=== PATIENT | female | born 1945 | race Caucasian/White ===

== ENCOUNTER 2024-10-25 00:52 | Inpatient (IN) | payer MEDICARE, OTHER ==
--- NOTE | 2024-10-25 01:16 | ED ---
General Adult HPI - General Chief complaint: Arrhythmia/Palpitations Stated complaint: A-fib Time Seen by Provider: 10/25/24 00:56 Source: patient, EMS Mode of arrival: EMS - History of Present Illness Initial comments: This patient is an 78-year-old woman brought by ambulance to have evaluation for weakness. The patient states that she thinks a family member called EMS she do es not recall why. The patient is not having pain, dyspnea, nausea vomiting. She denies cough. The patient does state that she does feel weak and tired. She denies focal weakness. -: unknown Severity scale (1-10): 0 Consistency: constant Improves with: none Worsens with: none Associated Symptoms: weakness Treatments Prior to Arrival: none - Related Data Home Medications Medication Instructions Recorded Confirmed Apixaban [Eliquis] 2.5 mg PO BID 10/25/24 10/25/24 Cetirizine HCl [Zyrtec] 10 mg PO DAILY 10/25/24 10/25/24 Triamcinolone 0.1% Cream [Kenalog 1 applic TOPICAL BID 10/25/24 10/25/24 0.1% Cream] hydrOXYzine HCL [Atarax] 10 mg PO HS 10/25/24 10/25/24 Previous Rx's Medication Instructions Recorded Metoprolol Tartrate [Lopressor] 12.5 mg PO BID #11 tab 10/01/16 Allergies Allergy/AdvReac Type Severity Reaction Status Date / Time Iodinated Contrast Media Allergy Rash/Hives Verified 10/25/24 09:09 [Iodinated Contrast Media - IV Dye] Latex, Natural Rubber Allergy Rash/Hives Verified 10/25/24 09:09 Penicillins Allergy Swelling Verified 10/25/24 09:09 shellfish derived Allergy Rash/Hives Verified 10/25/24 09:09 Review of Systems ROS Statement: Those systems with pertinent positive or pertinent negative responses have been documented in the HPI. ROS Other: All systems not noted in ROS Statement are negative. Constitutional: Reports: weakness. Denies: fever, chills Eyes: Denies: vision change ENT: Denies: congestion Respiratory: Denies: cough, dyspnea, wheezes Cardiovascular: Denies: chest pain, palpitations, syncope Gastrointestinal: Reports: abdominal pain. Denies: nausea, vomiting, diarrhea Genitourinary: Denies: dysuria Musculoskeletal: Denies: back pain Skin: Denies: rash Neurological: Denies: headache, weakness, confusion Past Medical History Past Medical History: Osteoarthritis (OA) Additional Past Medical History / Comment(s): see Dr De León [facility] & [facility], can't philippe costaen right arm due to accident as a child, whooping cough as a child, spinal stenosis History of Any Multi-Drug Resistant Organisms: None Reported Past Surgical History: Cholecystectomy, Hysterectomy, Pacemaker, Tubal Ligation Past Anesthesia/Blood Transfusion Reactions: No Reported Reaction Type of Cardiac Device: Permanent Pacemaker Device Placement Date:: 1995 & 2045 Past Psychological History: No Psychological Hx Reported Smoking Status: Current some day smoker Past Alcohol Use History: None Reported Past Drug Use History: None Reported - Past Family History Brother(s) Family Medical History: Cancer Father Family Medical History: Coronary Artery Disease (CAD) General Exam General appearance: alert, in no apparent distress Head exam: Present: atraumatic, normocephalic Eye exam: Present: normal appearance. Absent: scleral icterus, conjunctival injection ENT exam: Present: normal oropharynx Neck exam: Present: normal inspection Respiratory exam: Present: normal lung sounds bilaterally. Absent: respiratory distress, wheezes, rales, rhonchi, stridor, accessory muscle use Cardiovascular Exam: Present: regular rate, irregular rhythm, normal heart sounds. Absent: systolic murmur, diastolic murmur, rubs, gallop GI/Abdominal exam: Present: soft. Absent: distended, tenderness, guarding, rebound, rigid, mass Extremities exam: Present: normal inspection, normal capillary refill. Absent: pedal edema, calf tenderness Back exam: Present: normal inspection. Absent: CVA tenderness (R), CVA tenderness (L) Neurological exam: Present: alert Skin exam: Present: warm, dry, normal color, other (Patient has small ulcer left pretibial). Absent: rash Course Vital Signs 10/25/24 10/25/24 10/25/24 00:58 02:52 05:49 Temperature 97.8 F Pulse Rate 75 77 75 Respiratory 18 18 16 Rate Blood Pressure 148/94 139/76 138/76 O2 Sat by Pulse 96 99 98 Oximetry 10/25/24 10/25/24 10/25/24 06:36 07:57 09:11 Temperature 99.2 F Pulse Rate 74 80 Respiratory 16 14 Rate Blood Pressure 128/76 110/62 O2 Sat by Pulse 98 93 L Oximetry EKG Findings - EKG Results: EKG: interpreted by ERMD, normal axis, normal ST/T - Dysrhythmias: Supraventricular dysrhythmia: atrial fibrillation (Rate 86 bpm) - CA, Pacemaker, Normal: Myocardial infarction: septal CA (old age or indeterminate) Medical Decision Making - Medical Decision Making Patient is 78-year-old woman here with generalized weakness. Workup reveals leukocytosis but no definite infection. The patient did attempt to give urine specimen at bedside commode twice but there was fecal contamination. Case discussed with Dr. Rousseau who will admit for altered mental status with possibility of urinary tract infection. No SIRS criteria x tosis currently The patient had chest x-ray that I interpreted as negative for acute infiltrate, pneumothorax, congestive heart failure The patient had CT of the brain that I interpreted as negative for acute bony injury, negative for acute intracranial hemorrhage or mass effect Was pt. sent in by a medical professional or institution (, PA, GARBAGE COLLECTOR DRIVER, urgent care, hospital, or intermediate...) When possible be specific @ -[No] Did you speak to anyone other than the patient for history (EMS, parent, family, police, friend...)? What history was obtained from this source @ -[EMS gave history Did you review nursing and triage notes (agree or disagree)? Why? @ -[I reviewed and agree with nursing and triage notes] Were old charts reviewed (outside hosp., previous admission, EMS record, old EKG, old radiological studies, urgent care reports/EKG's, intermediate records)? Report findings @ -[No old charts were reviewed] Differential Diagnosis (chest pain, altered mental status, abdominal pain women, abdominal pain men, vaginal bleeding, weakness, fever, dyspnea, syncope, headache, dizziness, GI bleed, back pain, seizure, CVA, palpatations, mental health, musculoskeletal)? @ -[Differential Altered Mental Status: Hypoglycemia, DKA, hypercapnia, ETOH, overdose, CO poisoning, trauma, myxedema coma, HTN encephalopathy, infection, encephalitis, psychosis, intercranial hemorrhage, hepatic encephalopathy, meningitis, CVA, this is not meant to be an all-inclusive list EKG interpreted by me (3pts min.). @ -[I interpreted as above] X-rays interpreted by me (1pt min.). @ -[I interpreted as above CT interpreted by me (1pt min.). @ -[I interpreted as above U/S interpreted by me (1pt. min.). @ -[None done] What testing was considered but not performed or refused? (CT, X-rays, U/S, labs)? Why? @ -[None] What meds were considered but not given or refused? Why? @ -[None] Did you discuss the management of the patient with other professionals (professionals i.e. , PA, GARBAGE COLLECTOR DRIVER, lab, RT, psych nurse, health care social worker, ambulance attendant, teacher, police officer booking, case assistant)? Give summary @ -[Case discussed with admitting physician and treatment recommendations are incorporated Was smoking cessation discussed for >3mins.? @ -[No] Was critical care preformed (if so, how long)? @ -[No] Were there social determinants of health that impacted care today? How? (Homelessness, low income, unemployed, alcoholism, drug addiction, transportation, low edu. Level, literacy, decrease access to med. care, senior care, rehab)? @ -[No] Was there de-escalation of care discussed even if they declined (Discuss DNR or withdrawal of care, Hospice)? DNR status @ -[No] What co-morbidities impacted this encounter? (DM, HTN, Smoking, COPD, CAD, Cancer, CVA, ARF, Chemo, Hep., AIDS, mental health diagnosis, sleep apnea, morbid obesity)? @ -[None] Was patient admitted / discharged? Hospital course, mention meds given and route, prescriptions, significant lab abnormalities, going to OR and other pertinent info. @ -[See above, patient is 78-year-old woman brought to have evaluation of altered mental status. Patient will be admitted for culture results and further evaluation. Undiagnosed new problem with uncertain prognosis? @ -[No] Drug Therapy requiring intensive monitoring for toxicity (Heparin, Nitro, Insulin, Cardizem)? @ -[No] Were any procedures done? @ -[No] Diagnosis/symptom? @ -[Acute altered mental status Leukocytosis Acute, or Chronic, or Acute on Chronic? @ -[Acute Uncomplicated (without systemic symptoms) or Complicated (systemic symptoms)? @ -[Uncomplicated Side effects of treatment? @ -[No] Exacerbation, Progression, or Severe Exacerbation? @ -[No] Poses a threat to life or bodily function? How? (Chest pain, USA, CA, pneumonia, PE, COPD, DKA, ARF, appy, cholecystitis, CVA, Diverticulitis, Homicidal, Suicidal, threat to staff... and all critical care pts) @ -[Yes, requires further evaluation - Lab Data Result diagrams: 10/25/24 01:16 10/25/24 01:16 Lab Results 10/25/24 10/25/24 10/25/24 Range/Units 01:13 01:16 01:16 WBC 16.9 H (3.8-10.6) k/uL RBC 3.48 L (3.80-5.40) m/uL Hgb 12.2 (11.4-16.0) gm/dL Hct 37.8 (34.0-46.0) % MCV 108.8 H (80.0-100.0) fL MCH 35.0 (25.0-35.0) pg MCHC 32.2 (31.0-37.0) g/dL RDW 14.0 (11.5-15.5) % Plt Count 147 L (150-450) k/uL MPV 8.4 Neutrophils % 92 % Lymphocytes % 3 % Monocytes % 3 % Eosinophils % 2 % Basophils % 0 % Neutrophils # 15.4 H (1.3-7.7) k/uL Lymphocytes # 0.6 L (1.0-4.8) k/uL Monocytes # 0.4 (0-1.0) k/uL Eosinophils # 0.3 (0-0.7) k/uL Basophils # 0.1 (0-0.2) k/uL Manual Slide Review Performed Macrocytosis Marked A PT 11.3 (10.0-12.5) sec INR 1.0 (<1.2) APTT 27.5 (22.0-30.0) sec Sodium (137-145) mmol/L Potassium (3.5-5.1) mmol/L Chloride (98-107) mmol/L Carbon Dioxide (22-30) mmol/L Anion Gap mmol/L BUN (7-17) mg/dL Creatinine (0.52-1.04) mg/dL Est GFR (CKD-EPI)AfAm (>60 ml/min/1.73 sqM) Est GFR (CKD-EPI)NonAf (>60 ml/min/1.73 sqM) Glucose (74-99) mg/dL Plasma Lactic Acid Harvinder (0.7-2.0) mmol/L Calcium (8.4-10.2) mg/dL Magnesium (1.6-2.3) mg/dL Total Bilirubin (0.2-1.3) mg/dL AST (14-36) U/L ALT (4-34) U/L Alkaline Phosphatase (38-126) U/L Troponin I (0.000-0.034) ng/mL Total Protein (6.3-8.2) g/dL Albumin (3.5-5.0) g/dL TSH (0.465-4.680) mIU/L Urine Color Colorless Urine Appearance Clear (Clear) Urine pH 5.0 (5.0-8.0) Ur Specific [place] 1.024 (1.001-1.035) Urine Protein Negative (Negative) Urine Glucose (UA) Negative (Negative) Urine Ketones Negative (Negative) Urine Blood Negative (Negative) Urine Nitrite Negative (Negative) Urine Bilirubin Negative (Negative) Urine Urobilinogen <2.0 (<2.0) mg/dL Ur Leukocyte Esterase Negative (Negative) Urine RBC 1 (0-5) /hpf Urine WBC 3 (0-5) /hpf Ur Squamous Epith Cells 2 (0-4) /hpf Urine Bacteria Rare H (None) /hpf Urine Mucus Rare H (None) /hpf 10/25/24 10/25/24 10/25/24 Range/Units 01:16 01:16 01:16 WBC (3.8-10.6) k/uL RBC (3.80-5.40) m/uL Hgb (11.4-16.0) gm/dL Hct (34.0-46.0) % MCV (80.0-100.0) fL MCH (25.0-35.0) pg MCHC (31.0-37.0) g/dL RDW (11.5-15.5) % Plt Count (150-450) k/uL MPV Neutrophils % % Lymphocytes % % Monocytes % % Eosinophils % % Basophils % % Neutrophils # (1.3-7.7) k/uL Lymphocytes # (1.0-4.8) k/uL Monocytes # (0-1.0) k/uL Eosinophils # (0-0.7) k/uL Basophils # (0-0.2) k/uL Manual Slide Review Macrocytosis PT (10.0-12.5) sec INR (<1.2) APTT (22.0-30.0) sec Sodium 136 L (137-145) mmol/L Potassium 4.2 (3.5-5.1) mmol/L Chloride 108 H (98-107) mmol/L Carbon Dioxide 26 (22-30) mmol/L Anion Gap 2 mmol/L BUN 19 H (7-17) mg/dL Creatinine 0.76 (0.52-1.04) mg/dL Est GFR (CKD-EPI)AfAm 86 (>60 ml/min/1.73 sqM) Est GFR (CKD-EPI)NonAf 75 (>60 ml/min/1.73 sqM) Glucose 98 (74-99) mg/dL Plasma Lactic Acid Harvinder 1.8 (0.7-2.0) mmol/L Calcium 9.2 (8.4-10.2) mg/dL Magnesium 1.6 (1.6-2.3) mg/dL Total Bilirubin 0.8 (0.2-1.3) mg/dL AST 21 (14-36) U/L ALT 12 (4-34) U/L Alkaline Phosphatase 82 (38-126) U/L Troponin I <0.012 (0.000-0.034) ng/mL Total Protein 6.2 L (6.3-8.2) g/dL Albumin 3.8 (3.5-5.0) g/dL TSH 0.650 (0.465-4.680) mIU/L Urine Color Urine Appearance (Clear) Urine pH (5.0-8.0) Ur Specific [place] (1.001-1.035) Urine Protein (Negative) Urine Glucose (UA) (Negative) Urine Ketones (Negative) Urine Blood (Negative) Urine Nitrite (Negative) Urine Bilirubin (Negative) Urine Urobilinogen (<2.0) mg/dL Ur Leukocyte Esterase (Negative) Urine RBC (0-5) /hpf Urine WBC (0-5) /hpf Ur Squamous Epith Cells (0-4) /hpf Urine Bacteria (None) /hpf Urine Mucus (None) /hpf Disposition Clinical Impression: Generalized weakness, Leukocytosis Disposition: ADMITTED IP TO THIS HOSP Condition: Fair Is patient prescribed a controlled substance at d/c from ED?: No
[2024-10-25 01:21] LABS: Basophils # (A) 0.1 k/uL (0-0.2); Basophils % (A) 0 %; Eosinophils # (A) 0.3 k/uL (0-0.7); Eosinophils % (A) 2 %; HCT 37.8 % (34.0-46.0); HGB 12.2 gm/dL (11.4-16.0); Lymphocytes # (A) 0.6 k/uL (1.0-4.8); Lymphocytes % (A) 3 %; MCHC 32.2 g/dL (31.0-37.0); MCV 108.8 fL (80.0-100.0); Macrocytosis Marked; Mean Platelet Volume 8.4; Monocytes # (A) 0.4 k/uL (0-1.0); Monocytes % (A) 3 %; Neutrophils # (A) 15.4 k/uL (1.3-7.7); Neutrophils % (A) 92 %; Platelet Count 147 k/uL (150-450); RBC 3.48 m/uL (3.80-5.40); WBC 16.9 k/uL (3.8-10.6)
[2024-10-25 01:30] LABS: Partial Thromboplastin Time 27.5 sec (22.0-30.0); Prothrombin Time 11.3 sec (10.0-12.5)
[2024-10-25 01:35] LABS: ALT 12 U/L (4-34); AST 21 U/L (14-36); African American GFR (CKD) 86 (>60 ml/min/1.73 sqM); Albumin 3.8 g/dL (3.5-5.0); Alkaline Phosphatase 82 U/L (38-126); Anion Gap 2 mmol/L; Blood Urea Nitrogen 19 mg/dL (7-17); Calcium 9.2 mg/dL (8.4-10.2); Carbon Dioxide 26 mmol/L (22-30); Chloride 108 mmol/L (98-107); Glucose 98 mg/dL (74-99); Magnesium 1.6 mg/dL (1.6-2.3); Non-African American GFR(CKD) 75 (>60 ml/min/1.73 sqM); Potassium 4.2 mmol/L (3.5-5.1); Sodium 136 mmol/L (137-145); Total Bilirubin 0.8 mg/dL (0.2-1.3); Total Protein 6.2 g/dL (6.3-8.2)
--- NOTE | 2024-10-25 04:56 | XR ---
EXAM: XR Chest, 1 View CLINICAL HISTORY: ITS.REASON XR Reason: dysrhythmia TECHNIQUE: Frontal view of the chest. COMPARISON: No relevant prior studies available. FINDINGS: Lungs: No consolidation or mass. Mild pulmonary edema Pleural space: No acute findings. Heart: cardiomegaly. Bones/joints: No acute findings. IMPRESSION: Mild pulmonary edema
[2024-10-25] MEDS ORDERED: ACETAMINOPHEN TAB 325 MG TAB PO PRN (07:14)
[2024-10-25] MEDS ORDERED: NALOXONE 0.4 MG/ML 1 ML VIAL IV PRN (07:14)
--- NOTE | 2024-10-25 07:49 | CT ---
EXAMINATION TYPE: CT brain wo con DATE OF EXAM: 10/25/2024 7:32 AM COMPARISON: None. CLINICAL INDICATION: Female, 78 years old with history of altered mental status, Altered mental statu s TECHNIQUE: CT of the brain is performed utilizing 3 mm thick sections through the posterior fossa and 3 mm thick sections through the remaining calvarium. Study is performed within 24 hours of arrival to the hospital. Contrast used: mL of , (none if empty) CT DLP: 1063.4 mGycm, Automated exposure control for dose reduction was used. FINDINGS: No abnormal hyperdensity is present to suggest an acute intracranial hemorrhage. No mass lesion is evident. No acute infarcts are evident. Ventricles and sulci are appropriate for the patient age. There is opacification of the small right maxillary sinus. Bilateral josue bullosa are present IMPRESSION: 1. No acute intracranial process. Follow up MRI can be performed as clinically indicated. [facility], , 10/25/2024 7:46 AM
[2024-10-25] MEDS: SODIUM CHLORIDE 0.9% 1,000 ML IV SCH (07:57)
[2024-10-25 18:19] LABS: Bacteria,Urine Rare /hpf; Mucus,Urine Rare /hpf; RBC,Urine 1 /hpf (0-5); Squamous Epithelial Cell,Urine 2 /hpf (0-4); WBC,Urine 3 /hpf (0-5)
[2024-10-25 18:39] LABS: Appearance,Urine Clear (Clear); Color,Urine Colorless
[2024-10-25 18:40] LABS: Bilirubin,Urine Negative (Negative); Blood,Urine Negative (Negative); Glucose,Urine (UA) Negative (Negative); Ketones,Urine Negative (Negative); Leukocyte Esterase,Urine Negative (Negative); Nitrite,Urine Negative (Negative); Protein,Urine Negative (Negative); Specific Gravity,Urine 1.024 (1.001-1.035); Urobilinogen,Urine <2.0 mg/dL (<2.0)
--- NOTE | 2024-10-26 00:56 | HP ---
HISTORY AND PHYSICAL CHIEF COMPLAINT: Altered mental status, shortness of breath, and hypertension. HISTORY OF PRESENT ILLNESS: This is an 78-year-old female, who was brought to the emergency room by her family because of confusion and weakness. She does have a history of COPD. In the emergency room, she was awake and alert, but slightly confused. PHYSICAL EXAMINATION: VITAL SIGNS: Blood pressure is 148/94. HEAD, EARS, EYES, NOSE, MOUTH, AND THROAT: Appeared to be normal. CHEST: Clear. CARDIAC: Normal. ABDOMEN: Soft, nontender. EXTREMITIES: Normal. IMPRESSION: 1. Altered mental status. 2. Chronic obstructive pulmonary disease. 3. Hypertension. 4. Generalized weakness. PLAN: 1. Bed rest. 2. IV fluids. 3. Controlled hypertension. 4. Look for etiology of weakness. 5. PT and OT. 6. Discharge planning. NATALIA / MAC: [id number] /
[2024-10-27 01:12] VITALS: RESP 18
--- NOTE | 2024-10-27 01:53 | PN ---
PROGRESS NOTE DATE OF SERVICE: 10/26/2024 CHIEF COMPLAINT: Altered mental status and COPD. HISTORY OF PRESENT ILLNESS: This lady is a little bit more alert, but still slightly confused. Apparently, there is an APS case been opened. It is not clear if this is related to someone giving her poor care or to her own condition and lack of ability to care for herself. PHYSICAL EXAMINATION: CHEST: Clear. CARDIAC: Normal. GENERAL: She is awake, and alert. She is pale. IMPRESSION: 1. Chronic obstructive pulmonary disease. 2. Generalized weakness. 3. General debility. PLAN: Continue with IV fluids and rehydration and refer to hospice services. MMODL / IJN: [id number] /
[2024-10-27 12:24] VITALS: BP 152/72; PULSE 66; TEMP 97.5
[2024-10-27] MEDS: APIXABAN 2.5 MG TABLET PO SCH (12:57)
[2024-10-27] MEDS: METOPROLOL TARTRATE 12.5 MG TAB PO SCH (12:58)
--- NOTE | 2024-10-28 02:50 | PN ---
PROGRESS NOTE DATE OF SERVICE: 10/27/2024 CHIEF COMPLAINT: Altered mental status, COPD, and hypertension. HISTORY OF PRESENT ILLNESS: This lady is alert, but she remains confused. PHYSICAL EXAMINATION: CHEST: Clear. CARDIAC: Normal. ABDOMEN: Soft and nontender. VITAL SIGNS: Blood pressure is 175/55. IMPRESSION: 1. Mental status changes. 2. Chronic obstructive pulmonary disease. 3. Hypertension. PLAN: Work with Front Desk Worker in order to determine a discharge plan. Apparently she was living alone in a garage and was infested with insects when she came in. A different discharge location will have to be sought. MMODL / IJN: [id number] /
--- NOTE | 2024-10-30 06:38 | DS ---
DISCHARGE SUMMARY CHIEF COMPLAINT: Altered mental status, COPD, and general debility. HISTORY OF PRESENT ILLNESS AND PHYSICAL EXAM: Details of this lady's history and physical can be found in the initial workup. LABORATORY STUDIES: While she was in the hospital, she had laboratory studies, details of which can be found in the laboratory section of her chart. COURSE IN THE HOSPITAL: After admission, she was placed on bedrest, started on intravenous fluids, and treated for her COPD. She remained confused. The story came up that she was living alone in a garage without heat. She was infested with insects and insect bites. An Adult Protective Services complaint was filed. The patient decided to sign herself out against medical advice. Her daughter tried to get her to stay without success. FINAL DIAGNOSES: 1. Mental status changes. 2. Dementia. 3. Chronic obstructive pulmonary disease. 4. Delirium. 5. General debility and failure to thrive. OPERATIONS: None. CONSULTATIONS: None. NATALIA / MAC: [id number] /
== END 2024-10-27 15:46 | disposition left against medical advice (07) | DRG 192 ==
LOC: EC 00:52 → 5NMEDONC 07:14
PROVIDERS: ADMIT Family Medicine; ATTEND Family Medicine
DX: J44.9 Chronic obstructive pulmonary disease, unspecified (principal); F03.90 Unspecified dementia, unspecified severity, without behavioral disturbance, psychotic disturbance, mood disturbance, and anxiety; I10 Essential (primary) hypertension; I48.91 Unspecified atrial fibrillation; R62.7 Adult failure to thrive; F17.200 Nicotine dependence, unspecified, uncomplicated; W57.XXXA Bitten or stung by nonvenomous insect and other nonvenomous arthropods, initial encounter; Z79.01 Long term (current) use of anticoagulants
CPT/HCPCS: 36415; 70450; 71045; 80053; 81003; 83605; 83735; 84443; 84484; 85025; 85610; 85730; 87040; 93005; 96361; 96365; 99285

== ENCOUNTER 2024-12-09 11:49 | Day surgery (SDC) | payer MEDICARE ==
[2024-12-09] MEDS: SODIUM CHLORIDE 0.9% 1,000 ML IV SCH ×2 (12:00→17:12)
[2024-12-09 12:57] LABS: Basophils % (A) 1 %; Eosinophils # (A) 0.2 k/uL (0-0.7); Eosinophils % (A) 3 %; HCT 36.6 % (34.0-46.0); HGB 11.8 gm/dL (11.4-16.0); Hypochromasia Slight; Lymphocytes # (A) 1.3 k/uL (1.0-4.8); Lymphocytes % (A) 24 %; MCH 34.9 pg (25.0-35.0); MCHC 32.4 g/dL (31.0-37.0); MCV 107.9 fL (80.0-100.0); Macrocytosis Moderate; Mean Platelet Volume 8.2; Monocytes # (A) 0.4 k/uL (0-1.0); Monocytes % (A) 7 %; Neutrophils # (A) 3.4 k/uL (1.3-7.7); Neutrophils % (A) 64 %; Platelet Count 161 k/uL (150-450); RBC 3.39 m/uL (3.80-5.40); RDW 13.3 % (11.5-15.5); WBC 5.4 k/uL (3.8-10.6)
[2024-12-09 13:10] LABS: African American GFR (CKD) 80 (>60 ml/min/1.73 sqM); Anion Gap 3 mmol/L; Blood Urea Nitrogen 24 mg/dL (7-17); Calcium 9.2 mg/dL (8.4-10.2); Carbon Dioxide 30 mmol/L (22-30); Chloride 103 mmol/L (98-107); Glucose 86 mg/dL (74-99); Non-African American GFR(CKD) 70 (>60 ml/min/1.73 sqM); Potassium 4.3 mmol/L (3.5-5.1); Sodium 136 mmol/L (137-145)
[2024-12-09] MEDS ORDERED: PROPOFOL 10 MG/ML 20 ML VIAL IV ONE (14:55)
[2024-12-09] MEDS ORDERED: MIDAZOLAM 2 MG/2 ML VIAL ONE (14:55)
[2024-12-09] MEDS ORDERED: fentaNYL (PF) 50 MCG/ML 2 ML AMP ONE (14:55)
[2024-12-09] MEDS ORDERED: PHENYLEPHRINE-0.9% NACL SYG 1,000 MCG/10 ML SYRINGE ONE (14:55)
[2024-12-09] MEDS: ceFAZolin 1 GM in SODIUM CHLORIDE 0.9% IRRIG BTL 250 ML IRRIGATION PRN (15:17)
[2024-12-09] MEDS: ROPIVACAINE 5 MG/ML 30 ML VIAL MISCELLANE ONE (15:31)
[2024-12-09] MEDS: LIDOCAINE 1% INJ 10MG/ML (20 ML MDV) SQ ONE (15:31)
--- NOTE | 2024-12-09 16:31 | P.EPPROC ---
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 Written informed consent was obtained prior to the procedure. Conscious sedation provided. IV antibiotics administered. Cinefluoroscopy of the leads in the pocket performed Abandoned RV lead. New RV lead in the RV septum Atrial lead no fractures or breaks noted Local anesthesia administered. A 4 cm incision made in the pectoral area. Subfascial pocket accessed. Dual-chamber pacemaker generator explanted Partial capsulectomy performed. Hemostasis was assured. New dual-chamber pacemaker generator implanted. Pocket irrigated with antibiotic solution. Antibiotic pouch placed. Wound closed in 3 layers and dressed per protocol Atrial lead showed noise. Impedance around 470 ohms RV pacing threshold 0. 7 5 V at 0.4 ms, R waves 7.4 mV and pacing pins 710 ohms Device bandoleer straightener stamper: [employer] model #2272 Dual-chamber pacemaker device connected to the leads and placed in the subfascial pocket Patient tolerated the procedure well without acute complications Transfer tech
[2024-12-09] MEDS: ACETAMINOPHEN IV (For NPO) 1,000 MG in EMPTY BAG 1 BAG IVPB ONE (17:20)
[2024-12-09] MEDS: METOPROLOL TARTRATE 12.5 MG TAB PO SCH (21:01)
[2024-12-09] MEDS: APIXABAN 2.5 MG TABLET PO SCH (21:01)
[2024-12-10] MEDS: ACETAMINOPHEN TAB 325 MG TAB PO PRN (01:52)
--- NOTE | 2024-12-10 08:05 | P.DS ---
Providers Attending physician: Nathanael De León Primary care physician: Idalmis Johnson DO Hospital Course: Patient is doing well. She is resting comfortably in bed. No hematoma no swelling no soakage Blood pressure 123/72 mmHg pulse rate in the 50s rhythm is regular Impression Underlying bradycardia status post dual-chamber pacemaker implant Dual-chamber at [facility] Yesterday she underwent dual-chamber pacemaker generator change successfully Plan continue all home medications without any changes Antibiotics have been completed and she will be discharged home after breakfast today and follow-up in the office in the device clinic in 1 week Instructions regarding pacemaker site care were given transfer tech Plan - Discharge Summary Discharge Rx Participant: No New Discharge Prescriptions: No Action Cetirizine HCl [Zyrtec] 10 mg PO DAILY Apixaban [Eliquis] 2.5 mg PO BID Metoprolol Tartrate [Lopressor] 0.5 tab PO BID Discharge Medication List Apixaban [Eliquis] 2.5 mg PO BID 10/25/24 [History] Cetirizine HCl [Zyrtec] 10 mg PO DAILY 10/25/24 [History] Metoprolol Tartrate [Lopressor] 0.5 tab PO BID 12/08/24 [History] Follow up Appointment(s)/Referral(s): Nathanael De León MD [STAFF PHYSICIAN] - 12/17/24 3:30 pm (FOLLOW UP APPOINTMENT MADE WITH THE DEVICE CLINIC. ) Activity/Diet/Wound Care/Special Instructions: PATIENT EDUCATION MATERIAL Instructions following a heart rhythm device implant. 1. Keep dressing DRY for 5 DAYS. You may cover the area with Saran or Cling Wrap, prior to a shower. 2. The dressing will be removed in the Device Clinic at [facility]. Absorbable sutures were used to close the wound. 3. Avoid raising the left arm above the shoulder level. 4 week restriction 4. Avoid arm movements, like backscratching, rubbing the head, or pulling on a cord. 4 weeks restriction 5. Gentle range of motion movements of the shoulder, closest to the incision should be performed to avoid a frozen shoulder. (Pendulum exercises of the shoulder) 6. The opposite arm may be used freely. 7. Avoid driving for 7 days. 8. Avoid activities such as golfing, swimming, weed whacking, lifting more than 10 pounds weight, bowling, gymnastics and weight training/lifting. (6 weeks restriction) 9. Activities such as wood chopping with an axe, pull-ups in the gymnasium, power lifting, arc-welding, being close to home induction cooktops will always be a problem. 10. Arm sling is only a reminder not to raise the arm above the head. You do not need to keep the arm completely immobilized. Your free to move the arm and use it and for normal activities. In case of any problems, please call [facility], Jose Luis Jarrett, @ [phone], Attention: Device Clinic Device clinic follow-up in 5 days Follow-up with primary screen door maker in 2-3 months Discharge Disposition: HOME SELF-CARE
[2024-12-10 08:06] VITALS: BP 126/70; PULSE 56; RESP 18; TEMP 97.4
== END 2024-12-10 10:45 | disposition home or self-care (01) ==
LOC: CATHEP 11:49 → 6NMEDSUR 16:09 → CATHEP 12-10 10:45
PROVIDERS: ATTEND Internal Medicine Clinical Cardiac Electrophysiology
DX: I48.19 Other persistent atrial fibrillation (principal); I49.5 Sick sinus syndrome; I10 Essential (primary) hypertension; E78.5 Hyperlipidemia, unspecified; F17.210 Nicotine dependence, cigarettes, uncomplicated; M48.00 Spinal stenosis, site unspecified; M19.90 Unspecified osteoarthritis, unspecified site; Z82.49 Family history of ischemic heart disease and other diseases of the circulatory system; Z95.0 Presence of cardiac pacemaker; Z90.49 Acquired absence of other specified parts of digestive tract; Z88.0 Allergy status to penicillin; Z91.040 Latex allergy status; Z91.041 Radiographic dye allergy status; Z79.899 Other long term (current) drug therapy
CPT/HCPCS: 33228; 80048; 85025; C1785; J2250; J0690; J2003; J3010; J2795; J0131; J2704; J2371

== ENCOUNTER 2025-02-22 15:48 | Inpatient (IN) | payer MEDICARE ==
[2025-02-22 16:32] LABS: Basophils # (A) 0.03 10*3/uL (0.00-0.10); Basophils % (A) 0.2 %; HCT 36.1 % (37.2-46.3); HGB 12.2 g/dL (12.0-15.0); Lymphocytes # (A) 0.66 10*3/uL (0.90-5.00); Lymphocytes % (A) 5.3 %; MCHC 33.8 g/dL (32.0-37.0); MCV 100.6 fL (80.0-97.0); Monocytes # (A) 1.46 10*3/uL (0.20-1.00); Monocytes % (A) 11.6 %; Neutrophils # (A) 10.37 10*3/uL (1.80-7.70); Neutrophils % (A) 82.5 %; Platelet Count 203 10*3/uL (140-440); RBC 3.59 10*6/uL (4.10-5.20); RDW 14.3 % (11.5-14.5); WBC 12.57 10*3/uL (4.50-10.00)
--- NOTE | 2025-02-22 16:43 | ED ---
General Adult HPI - General Chief complaint: Fall Stated complaint: Fall Time Seen by Provider: 02/22/25 16:00 Source: patient, EMS, RN notes reviewed, old records reviewed Mode of arrival: EMS Limitations: altered mental status - History of Present Illness Initial comments: This is an 79-year-old female whose sister called EMS because she found the pat ient down and confused patient complains of right hip pain but does not have any recollection of the fall and denies hitting her head or neck. Patient states she is on a blood thinner though. Patient denies any difficulty breathing or chest pain. Patient has any palpitations. Patient is very poor historian. Patient denies any abdominal pain patient denies any back pain patient's only complaint is right hip pain. - Related Data Home Medications Medication Instructions Recorded Confirmed Apixaban [Eliquis] 2.5 mg PO BID 10/25/24 02/22/25 Metoprolol Tartrate [Lopressor] 12.5 tab PO BID 12/08/24 02/22/25 Furosemide [Lasix] 20 mg PO DAILY PRN 02/22/25 02/22/25 Allergies Allergy/AdvReac Type Severity Reaction Status Date / Time Iodinated Contrast Media Allergy Rash/Hives Verified 02/22/25 17:37 [Iodinated Contrast Media - IV Dye] Latex, Natural Rubber Allergy Rash/Hives Verified 02/22/25 17:37 Penicillins Allergy Swelling Verified 02/22/25 17:37 shellfish derived Allergy Rash/Hives Verified 02/22/25 17:37 Review of Systems ROS Statement: Those systems with pertinent positive or pertinent negative responses have been documented in the HPI. ROS Other: All systems not noted in ROS Statement are negative. 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 very agitated during phone call-has some other meds not stated & doesn't know what they are for, poor historian History of Any Multi-Drug Resistant Organisms: None Reported Past Surgical History: Cholecystectomy, Hysterectomy, Pacemaker, Tubal Ligation Past Anesthesia/Blood Transfusion Reactions: No Reported Reaction Type of Cardiac Device: Permanent Pacemaker Device Placement Date:: 1995 & 2045 Past Psychological History: No Psychological Hx Reported Smoking Status: Current some day smoker - Past Family History Brother(s) Family Medical History: Cancer Father Family Medical History: Coronary Artery Disease (CAD) General Exam - General Exam Comments Initial Comments: GENERAL: Patient is well-developed and well-nourished. Patient is nontoxic and well-hydrated and is in no acute distress. ENT: Neck is soft and supple. No significant lymphadenopathy is noted. Oropharynx is clear. Moist mucous membranes. Neck has full range of motion without eliciting any pain. EYES: The sclera were anicteric and conjunctiva were pink and moist. Extraocular move ments were intact and pupils were equal round and reactive to light. Eyelids were unremarkable. PULMONARY: Unlabored respirations. Good breath sounds bilaterally. No audible rales rhonchi or wheezing was noted. CARDIOVASCULAR: There is a regular rate and rhythm without any murmurs gallops or rubs. ABDOMEN: Patient's skin is very pale SKIN: Skin is clear with no lesions or rashes and otherwise unremarkable. NEUROLOGIC: Patient is alert and oriented x 1. Cranial nerves II through XII are grossly intact. Motor and sensory are also intact. Normal speech, volume and content. Symmetrical smile. MUSCULOSKELETAL: Patient has pain of the right hip on movement of the right leg LYMPHATICS: No significant lymphadenopathy is noted PSYCHIATRIC: Normal psychiatric evaluation. Limitations: altered mental status Course Vital Signs 02/22/25 02/22/25 02/22/25 15:53 17:33 18:00 Temperature 98 F 97.6 F 97.8 F Pulse Rate 96 61 59 L Pulse Rate [ Pulse Oximetery ] Respiratory 18 20 18 Rate Blood Pressure 151/82 133/78 136/71 O2 Sat by Pulse 96 95 96 Oximetry 02/22/25 02/22/25 02/23/25 19:22 22:00 01:00 Temperature 97.7 F Pulse Rate 63 51 L 58 L Pulse Rate [ Pulse Oximetery ] Respiratory 21 20 19 Rate Blood Pressure 123/83 97/47 101/51 O2 Sat by Pulse 99 98 96 Oximetry 02/23/25 02/23/25 02:01 02:10 Temperature 97.4 F L Pulse Rate 64 Pulse Rate [ 69 Pulse Oximetery ] Respiratory 18 18 Rate Blood Pressure 103/65 O2 Sat by Pulse 100 94 L Oximetry Medical Decision Making - Medical Decision Making EKG is interpreted by myself. EKG shows atrial fibrillation at 65 bpm QRS is 86 QT interval 395 QTc is 407. Patient's EKG shows no ST segment elevation or depression Was pt. sent in by a medical professional or institution ([facility], [employer], urgent ca re, hospital, or long-term...) When possible be specific @ -No Did you speak to anyone other than the patient for history (EMS, parent, family, police, friend...)? What history was obtained from this source @ -No Did you review nursing and triage notes (agree or disagree)? Why? @ -I reviewed and agree with nursing and triage notes Were old charts reviewed (outside hosp., previous admission, EMS record, old EKG, old radiological studies, urgent care reports/EKG's, long-term records)? Report findings @ -No old charts were reviewed Differential Diagnosis? @ -Chest pain, altered mental status, abdominal pain women, abdominal pain men, vaginal bleeding, weakness, fever, dyspnea, syncope, headache, dizziness, GI bleed, back pain, seizure, CVA, palpatations, mental health, musculoskeletal EKG interpreted by me (3pts min.). @ -As above X-rays interpreted by me (1pt min.). @ -X-ray of the right hip shows a femoral neck fracture CT interpreted by me (1pt min.). @ -None done U/S interpreted by me (1pt. min.). @ -None done What testing was considered but not performed or refused? (CT, X-rays, U/S, labs)? Why? @ -None What meds were considered but not given or refused? Why? @ -None Did you discuss the management of the patient with other professionals (professionals i.e. [facility], LEAD ELECTRICAL ENGINEER, lab, RT, psych nurse, social human services assistants, nurses director, teacher, senior credit officer, counseling case manager)? Give summary @ -I spoke with Dr. Johnson he agreed to be on consult for this patient. Spoke with Dr. Suh and he agrees that he is his patient and he will be admitting the patient Was smoking cessation discussed for >3mins.? @ -No Was critical care preformed (if so, how long)? @ -No Were there social determinants of health that impacted care today? How? (Homelessness, low income, unemployed, alcoholism, drug addiction, transportation, low edu. Level, literacy, decrease access to med. care, [facility], rehab)? @ -No Was there de-escalation of care discussed even if they declined (Discuss DNR or withdrawal of care, Hospice)? DNR status @ -No What co-morbidities impacted this encounter? (DM, HTN, Smoking, COPD, CAD, Cancer, CVA, ARF, Chemo, Hep., AIDS, mental health diagnosis, sleep apnea, morbid obesity)? @ -None Was patient admitted / discharged? Hospital course, mention meds given and route, prescriptions, significant lab abnormalities, going to OR and other pertinent info. @ -Patient's x-ray shows a hip fracture. Patient's lab work was within normal ranges. Patient was in the emergency department she is a liter of lactated Ringer's. Patient will be admitted to Dr. Rousseau with a consult to Dr. Johnson. Patient was very difficult understands she seems as though she was altered but because she did not have her teeth and no family member was there I could not ascertain whether she was altered or not so I decided to admit to medicine for them to determine her baseline status compared to her current status and she also just looked unwell overall so I thought it be better to be admitted to medicine then Ortho initially Undiagnosed new problem with uncertain prognosis? @ -No Drug Therapy requiring intensive monitoring for toxicity (Heparin, Nitro, Insulin, Cardizem)? @ -No Were any procedures done? @ -No Diagnosis/symptom? @ -Fall Acute, or Chronic, or Acute on Chronic? @ -Acute Uncomplicated (without systemic symptoms) or Complicated (systemic symptoms)? @ -Complicated Side effects of treatment? @ -No Exacerbation, Progression, or Severe Exacerbation? @ -No Poses a threat to life or bodily function? How? (Chest pain, [place], [place], pneumonia, PE, COPD, DKA, ARF, appy, cholecystitis, CVA, Diverticulitis, Homicidal, Suicidal, threat to staff... and all critical care pts) @ -No Diagnosis/symptom? @ -Right hip fracture Acute, or Chronic, or Acute on Chronic? @ -Acute Uncomplicated (without systemic symptoms) or Complicated (systemic symptoms)? @ -Complicated Side effects of treatment? @ -None Exacerbation, Progression, or Severe Exacerbation] @ -No Poses a threat to life or bodily function? @ -No - Lab Data Result diagrams: 02/22/25 16:25 02/22/25 16:25 Lab Results 02/22/25 02/22/25 02/22/25 Range/Units 16:25 16:25 16:25 WBC 12.57 H (4.50-10.00) 10*3/uL RBC 3.59 L (4.10-5.20) 10*6/uL Hgb 12.2 (12.0-15.0) g/dL Hct 36.1 L (37.2-46.3) % MCV 100.6 H (80.0-97.0) fL MCH 34.0 H (27.0-32.0) pg MCHC 33.8 (32.0-37.0) g/dL Plt Count 203 (140-440) 10*3/uL MPV 11.0 (9.5-12.2) fL Immature Gran % (Auto) 0.4 % Neutrophils % 82.5 % Lymphocytes % 5.3 % Monocytes % 11.6 % Eosinophils % 0.0 % Basophils % 0.2 % Immature Gran # 0.05 H (0.00-0.04) 10*3/uL Neutrophils # 10.37 H (1.80-7.70) 10*3/uL Lymphocytes # 0.66 L (0.90-5.00) 10*3/uL Monocytes # 1.46 H (0.20-1.00) 10*3/uL Eosinophils # 0.00 L (0.04-0.35) 10*3/uL Basophils # 0.03 (0.00-0.10) 10*3/uL Sodium 137 (137-145) mmol/L Potassium 4.7 (3.5-5.1) mmol/L Chloride 102 (98-107) mmol/L Carbon Dioxide 27 (22-30) mmol/L Anion Gap 8 mmol/L BUN 37 H (7-17) mg/dL Creatinine 0.97 (0.52-1.04) mg/dL Est GFR (CKD-EPI)AfAm 64 (>60 ml/min/1.73 sqM) Est GFR (CKD-EPI)NonAf 55 (>60 ml/min/1.73 sqM) Glucose 134 H (74-99) mg/dL Lactic Ac Sepsis Rflx Plasma Lactic Acid Harvinder 2.8 H* (0.7-2.0) mmol/L Calcium 10.1 (8.4-10.2) mg/dL Magnesium 2.0 (1.6-2.3) mg/dL Total Bilirubin 1.2 (0.2-1.3) mg/dL AST 34 (14-36) U/L ALT 21 (4-34) U/L Alkaline Phosphatase 85 (38-126) U/L Creatine Kinase 215 H (30-135) U/L Total Protein 7.4 (6.3-8.2) g/dL Albumin 4.4 (3.5-5.0) g/dL Urine Color Urine Appearance (Clear) Urine pH (5.0-8.0) Ur Specific [place] (1.001-1.035) Urine Protein (Negative) Urine Glucose (UA) (Negative) Urine Ketones (Negative) Urine Blood (Negative) Urine Nitrite (Negative) Urine Bilirubin (Negative) Urine Urobilinogen (<2.0) mg/dL Ur Leukocyte Esterase (Negative) Urine RBC (0-5) /hpf Urine WBC (0-5) /hpf Ur Squamous Epith Cells (0-4) /hpf Fatty Casts (0) /lpf Hyaline Casts (0-2) /lpf Urine Mucus (None) /hpf Blood Type Blood Type Confirm Blood Type Recheck Bld Type Recheck Status Antibody Screen Spec Expiration Date 02/22/25 02/22/25 02/22/25 Range/Units 16:34 16:51 17:09 WBC (4.50-10.00) 10*3/uL RBC (4.10-5.20) 10*6/uL Hgb (12.0-15.0) g/dL Hct (37.2-46.3) % MCV (80.0-97.0) fL MCH (27.0-32.0) pg MCHC (32.0-37.0) g/dL Plt Count (140-440) 10*3/uL MPV (9.5-12.2) fL Immature Gran % (Auto) % Neutrophils % % Lymphocytes % % Monocytes % % Eosinophils % % Basophils % % Immature Gran # (0.00-0.04) 10*3/uL Neutrophils # (1.80-7.70) 10*3/uL Lymphocytes # (0.90-5.00) 10*3/uL Monocytes # (0.20-1.00) 10*3/uL Eosinophils # (0.04-0.35) 10*3/uL Basophils # (0.00-0.10) 10*3/uL Sodium (137-145) mmol/L Potassium (3.5-5.1) mmol/L Chloride (98-107) mmol/L Carbon Dioxide (22-30) mmol/L Anion Gap mmol/L BUN (7-17) mg/dL Creatinine (0.52-1.04) mg/dL Est GFR (CKD-EPI)AfAm (>60 ml/min/1.73 sqM) Est GFR (CKD-EPI)NonAf (>60 ml/min/1.73 sqM) Glucose (74-99) mg/dL Lactic Ac Sepsis Rflx Y Plasma Lactic Acid Harvinder (0.7-2.0) mmol/L Calcium (8.4-10.2) mg/dL Magnesium (1.6-2.3) mg/dL Total Bilirubin (0.2-1.3) mg/dL AST (14-36) U/L ALT (4-34) U/L Alkaline Phosphatase (38-126) U/L Creatine Kinase (30-135) U/L Total Protein (6.3-8.2) g/dL Albumin (3.5-5.0) g/dL Urine Color Urine Appearance (Clear) Urine pH (5.0-8.0) Ur Specific [place] (1.001-1.035) Urine Protein (Negative) Urine Glucose (UA) (Negative) Urine Ketones (Negative) Urine Blood (Negative) Urine Nitrite (Negative) Urine Bilirubin (Negative) Urine Urobilinogen (<2.0) mg/dL Ur Leukocyte Esterase (Negative) Urine RBC (0-5) /hpf Urine WBC (0-5) /hpf Ur Squamous Epith Cells (0-4) /hpf Fatty Casts (0) /lpf Hyaline Casts (0-2) /lpf Urine Mucus (None) /hpf Blood Type B Positive Blood Type Confirm B Positive Blood Type Recheck No Previous Record Bld Type Recheck Status CABO Indicated Antibody Screen NEGATIVE Spec Expiration Date 02/25/2025 - 233302/22/25 02/22/25 Range/Units 17:52 18:54 WBC (4.50-10.00) 10*3/uL RBC (4.10-5.20) 10*6/uL Hgb (12.0-15.0) g/dL Hct (37.2-46.3) % MCV (80.0-97.0) fL MCH (27.0-32.0) pg MCHC (32.0-37.0) g/dL Plt Count (140-440) 10*3/uL MPV (9.5-12.2) fL Immature Gran % (Auto) % Neutrophils % % Lymphocytes % % Monocytes % % Eosinophils % % Basophils % % Immature Gran # (0.00-0.04) 10*3/uL Neutrophils # (1.80-7.70) 10*3/uL Lymphocytes # (0.90-5.00) 10*3/uL Monocytes # (0.20-1.00) 10*3/uL Eosinophils # (0.04-0.35) 10*3/uL Basophils # (0.00-0.10) 10*3/uL Sodium (137-145) mmol/L Potassium (3.5-5.1) mmol/L Chloride (98-107) mmol/L Carbon Dioxide (22-30) mmol/L Anion Gap mmol/L BUN (7-17) mg/dL Creatinine (0.52-1.04) mg/dL Est GFR (CKD-EPI)AfAm (>60 ml/min/1.73 sqM) Est GFR (CKD-EPI)NonAf (>60 ml/min/1.73 sqM) Glucose (74-99) mg/dL Lactic Ac Sepsis Rflx Plasma Lactic Acid Harvinder 2.4 H* (0.7-2.0) mmol/L Calcium (8.4-10.2) mg/dL Magnesium (1.6-2.3) mg/dL Total Bilirubin (0.2-1.3) mg/dL AST (14-36) U/L ALT (4-34) U/L Alkaline Phosphatase (38-126) U/L Creatine Kinase (30-135) U/L Total Protein (6.3-8.2) g/dL Albumin (3.5-5.0) g/dL Urine Color Yellow Urine Appearance Cloudy H (Clear) Urine pH 5.0 (5.0-8.0) Ur Specific [place] 1.029 (1.001-1.035) Urine Protein 1+ H (Negative) Urine Glucose (UA) Negative (Negative) Urine Ketones Negative (Negative) Urine Blood Negative (Negative) Urine Nitrite Negative (Negative) Urine Bilirubin Negative (Negative) Urine Urobilinogen 2.0 (<2.0) mg/dL Ur Leukocyte Esterase Negative (Negative) Urine RBC 2 (0-5) /hpf Urine WBC 1 (0-5) /hpf Ur Squamous Epith Cells 8 H (0-4) /hpf Fatty Casts 1 (0) /lpf Hyaline Casts 7 H (0-2) /lpf Urine Mucus Few H (None) /hpf Blood Type Blood Type Confirm Blood Type Recheck Bld Type Recheck Status Antibody Screen Spec Expiration Date Disposition Clinical Impression: Fall, Hip fracture, right Disposition: ADMITTED IP TO THIS [facility] Time of Disposition: 19:58
[2025-02-22 16:45] LABS: ALT 21 U/L (4-34); African American GFR (CKD) 64 (>60 ml/min/1.73 sqM); Albumin 4.4 g/dL (3.5-5.0); Anion Gap 8 mmol/L; Blood Urea Nitrogen 37 mg/dL (7-17); Calcium 10.1 mg/dL (8.4-10.2); Carbon Dioxide 27 mmol/L (22-30); Chloride 102 mmol/L (98-107); Creatine Kinase 215 U/L (30-135); Glucose 134 mg/dL (74-99); Non-African American GFR(CKD) 55 (>60 ml/min/1.73 sqM); Sodium 137 mmol/L (137-145); Total Bilirubin 1.2 mg/dL (0.2-1.3); Total Protein 7.4 g/dL (6.3-8.2)
[2025-02-22 16:47] LABS: AST 34 U/L (14-36); Alkaline Phosphatase 85 U/L (38-126); Potassium 4.7 mmol/L (3.5-5.1)
--- NOTE | 2025-02-22 17:34 | XR ---
EXAMINATION TYPE: XR chest 1V DATE OF EXAM: 02/22/2025 5:29 PM COMPARISON: Chest radiographs from 10/02/2016 TECHNIQUE: XR chest 1V Portable AP radiograph of the chest. CLINICAL INDICATION:Female, 79 years old with history of Difficulty breathing ; FINDINGS: Lungs/Pleura: No pleural effusion or pneumothorax. Hyperinflation. Chronic senescent parenchymal valiente ge. No focal consolidation. Pulmonary vascularity: Unremarkable. Heart/mediastinum: Cardiomediastinal silhouette is unremarkable. Atherosclerotic calcifications are seen in the aorta. Three lead cardiac conduction device overlying the left hemithorax with lead tips projecting over the right ventricle, right atrium and coronary sinus. Musculoskeletal: No acute osseous pathology. Other: Cholecystectomy clips in the right upper quadrant. IMPRESSION: 1. No acute cardiopulmonary disease process. 2. COPD changes. [facility], , 02/22/2025 5:32 PM
--- NOTE | 2025-02-22 17:37 | XR ---
EXAMINATION TYPE: XR Hip RT and AP Pelvis DATE OF EXAM: 02/22/2025 5:29 PM INDICATION: Patient age:Female; 79 years old; Reason for study: Trauma; PHH. pain COMPARISON: None. TECHNIQUE: The right hip was examined in the frontal and lateral projections and a AP pelvis. FINDINGS: Acute moderately displaced right proximal femur intertrochanteric fracture. No joint disloc ation or soft tissue swelling. Mild osteoarthritic changes of both hips with joint space narrowing. M ultilevel degenerative changes of the lumbar spine. Postsurgical changes with surgical clips within t he right upper quadrant and right midabdomen. Right-sided pelvic phleboliths. IMPRESSION: Acute moderately displaced right proximal femur intertrochanteric fracture. [facility], , 02/22/2025 5:34 PM
--- NOTE | 2025-02-22 17:58 | CT ---
EXAMINATION TYPE: CT brain cspine wo con CT DLP: 1325.7 mGycm, Automated exposure control for dose reduction was used. DATE OF EXAM: 02/22/2025 5:35 PM COMPARISON: CT brain 10/25/2024. CLINICAL INDICATION:Female, 79 years old with history of Trauma; Fall, pain TECHNIQUE: Brain: Multiple axial CT images of the brain were obtained without IV contrast. Cspine: Axial CT images from the skull base to the inferior aspect of T2 we obtained without intraven ous contrast. Coronal and sagittal reformatted images were also reviewed. FINDINGS: Brain: Extra-axial spaces: No abnormal extra-axial fluid collections. Ventricular system: Within normal limits Cerebral parenchyma: Age appropriate cerebral atrophy. No acute intraparenchymal hemorrhage or mass e ffect. The whiteside-white junction is well differentiated. Cerebellum: Unremarkable. Mass effect: No evidence of midline shift. Intracranial vasculature: Atherosclerotic calcifications of the intracranial vessels. Soft tissues: Normal. Calvarium/osseous structures: No depressed skull fracture. Benign hyperostosis frontalis noted. Paranasal sinuses and mastoid air cells: The mastoid air cells are clear. Complete opacification of t he right maxillary sinus without hyperostosis. The remaining paranasal sinuses are clear. Bilateral c oncha bullosa. Visualized orbits: Senile calcific scleral plaques are present. Cervical spine: Fracture: None. Osseous structures: Multilevel degenerative disc disease changes with endplate spurring and disc oste ophyte complex's. Vertebral alignment: Degenerative grade 1 anterolisthesis of C3 on C4 and C7 on T1. Spinal canal/Neural Foramina: Disc osteophyte complexes at C5-C6 and C6-C7 with at least mild spinal canal stenosis. Facet joint uncovertebral joint arthropathy scattered throughout the cervical spine w ith varying degrees of neural foraminal stenosis. Neck soft tissues: Prevertebral soft tissues are within normal limits. Other: The airway is patent. Centrilobular emphysematous changes. Posterior left upper lobe 9 mm pulm onary nodule abutting the major fissure (series [id number], image 102). Peripheral right upper lobe calcifi ed granuloma. Bilateral carotid bulb calcifications. Visualization of 3 cardiac pacemaking leads. Rig ht thyroid lobe 1.0 cm hypodense nodule with additional smaller subcentimeter nodule within the left thyroid lobe. IMPRESSION: 1. No acute intracranial process. 2. Redemonstration of complete opacification the right maxillary sinus. 3. No evidence of cervical spine fracture. 4. Moderate multilevel degenerative disc disease and facet arthropathy. 5. Left upper lobe 9 mm pulmonary nodule. Recommend further evaluation with PET/CT versus follow-up C T chest in 3 months. 6. Emphysematous changes. [facility], , 02/22/2025 5:55 PM
[2025-02-22 17:59] LABS: Appearance,Urine Cloudy (Clear); Bilirubin,Urine Negative (Negative); Blood,Urine Negative (Negative); Color,Urine Yellow; Fatty Casts,Urine 1 /lpf (0); Glucose,Urine (UA) Negative (Negative); Hyaline Casts,Urine 7 /lpf (0-2); Ketones,Urine Negative (Negative); Leukocyte Esterase,Urine Negative (Negative); Mucus,Urine Few /hpf; Nitrite,Urine Negative (Negative); Protein,Urine 1+ (Negative); RBC,Urine 2 /hpf (0-5); Specific Gravity,Urine 1.029 (1.001-1.035); Squamous Epithelial Cell,Urine 8 /hpf (0-4); WBC,Urine 1 /hpf (0-5)
[2025-02-22] MEDS: LACTATED RINGERS 1,000 ML IV ONE (19:42)
[2025-02-22] MEDS: SODIUM CHLORIDE 0.9% 1,000 ML IV ONE (20:41)
[2025-02-23] MEDS: HYDROmorphone 2 MG/ML 1 ML SYRINGE IVP PRN (04:01)
[2025-02-23 05:25] LABS: INR 1.1 (<1.2); Partial Thromboplastin Time 23.6 sec (22.0-30.0); Prothrombin Time 11.6 sec (10.0-12.5)
--- NOTE | 2025-02-23 10:14 | P.CNOR ---
History of Present Illness - HPI Consult date: 02/23/25 History of present illness: This is an 79 year-old female who is admitted for a right hip fracture after a fall. Per emergency room notes, patient was found down by a family member. Patient is seen and evaluated at bedside today. Patient is pleasantly confused and is a poor historian. No family present at bedside today. Patient is on [facility]. Patient's past medical history is significant for memory impairment, osteoarthritis, and a skin disorder. Review of Systems See HPI. ROS unobtainable: due to mental status Past Medical History Past Medical History: Memory Impairment, Musculoskeletal Disorder, Osteoarthritis (OA), Skin Disorder Additional Past Medical History / Comment(s): see Dr De León H & P, can't strai ghten right arm due to accident as a child, whooping cough as a child, spinal stenosis, has some flea bites currently-denies any open sores, pt. very agitated during phone call-has some other meds not stated & doesn't know what they are for, poor historian History of Any Multi-Drug Resistant Organisms: None Reported Past Surgical History: Cholecystectomy, Hysterectomy, Pacemaker, Tubal Ligation Past Anesthesia/Blood Transfusion Reactions: No Reported Reaction Type of Cardiac Device: Permanent Pacemaker Device Placement Date:: 1995 & 2045 Past Psychological History: No Psychological Hx Reported Smoking Status: Current some day smoker Past Alcohol Use History: None Reported Additional Past Alcohol Use History / Comment(s): Smokes 1/2 PPD since teenager. Past Drug Use History: None Reported - Past Family History Brother(s) Family Medical History: Cancer Father Family Medical History: Coronary Artery Disease (CAD) Medications and Allergies Home Medications Medication Instructions Recorded Confirmed Type Apixaban [Eliquis] 2.5 mg PO BID 10/25/24 02/22/25 History Metoprolol Tartrate [Lopressor] 12.5 tab PO BID 12/08/24 02/22/25 History Furosemide [Lasix] 20 mg PO DAILY PRN 02/22/25 02/22/25 History Allergies Allergy/AdvReac Type Severity Reaction Status Date / Time Iodinated Contrast Media Allergy Rash/Hives Verified 02/22/25 17:37 [Iodinated Contrast Media - IV Dye] Latex, Natural Rubber Allergy Rash/Hives Verified 04/08/25 17:37 Penicillins Allergy Swelling Verified 02/22/25 17:37 shellfish derived Allergy Rash/Hives Verified 02/22/25 17:37 Physical Examination On exam patient is resting comfortably in bed in no acute distress. Patient is pleasantly confused. Right lower extremity: Excoriations present on bilateral upper and lower extremities. Shortened and externally rotated. Minimal swelling. Calf is soft and nontender to palpation. Pain and limitation with motion. Sensation intact. Neurovascular status and circulatory status are intact. Results X-rays of the right hip and pelvis dated 02/22/2025 show a displaced intertrochanteric fracture of the right femur. - Labs Labs: Abnormal Lab Results - Last 24 Hours (Table) 02/22/25 02/22/25 02/22/25 Range/Units 16:25 16:25 16:25 WBC 12.57 H (4.50-10.00) 10*3/uL RBC 3.59 L (4.10-5.20) 10*6/uL Hct 36.1 L (37.2-46.3) % MCV 100.6 H (80.0-97.0) fL MCH 34.0 H (27.0-32.0) pg Immature Gran # 0.05 H (0.00-0.04) 10*3/uL Neutrophils # 10.37 H (1.80-7.70) 10*3/uL Lymphocytes # 0.66 L (0.90-5.00) 10*3/uL Monocytes # 1.46 H (0.20-1.00) 10*3/uL Eosinophils # 0.00 L (0.04-0.35) 10*3/uL BUN 37 H (7-17) mg/dL Glucose 134 H (74-99) mg/dL Plasma Lactic Acid Harvinder 2.8 H* (0.7-2.0) mmol/L Creatine Kinase 215 H (30-135) U/L Urine Appearance (Clear) Urine Protein (Negative) Ur Squamous Epith Cells (0-4) /hpf Hyaline Casts (0-2) /lpf Urine Mucus (None) /hpf 02/22/25 02/22/25 02/22/25 Range/Units 17:52 18:54 20:24 WBC (4.50-10.00) 10*3/uL RBC (4.10-5.20) 10*6/uL Hct (37.2-46.3) % MCV (80.0-97.0) fL MCH (27.0-32.0) pg Immature Gran # (0.00-0.04) 10*3/uL Neutrophils # (1.80-7.70) 10*3/uL Lymphocytes # (0.90-5.00) 10*3/uL Monocytes # (0.20-1.00) 10*3/uL Eosinophils # (0.04-0.35) 10*3/uL BUN (7-17) mg/dL Glucose (74-99) mg/dL Plasma Lactic Acid Harvinder 2.4 H* 3.0 H* (0.7-2.0) mmol/L Creatine Kinase (30-135) U/L Urine Appearance Cloudy H (Clear) Urine Protein 1+ H (Negative) Ur Squamous Epith Cells 8 H (0-4) /hpf Hyaline Casts 7 H (0-2) /lpf Urine Mucus Few H (None) /hpf 02/22/25 Range/Units 22:39 WBC (4.50-10.00) 10*3/uL RBC (4.10-5.20) 10*6/uL Hct (37.2-46.3) % MCV (80.0-97.0) fL MCH (27.0-32.0) pg Immature Gran # (0.00-0.04) 10*3/uL Neutrophils # (1.80-7.70) 10*3/uL Lymphocytes # (0.90-5.00) 10*3/uL Monocytes # (0.20-1.00) 10*3/uL Eosinophils # (0.04-0.35) 10*3/uL BUN (7-17) mg/dL Glucose (74-99) mg/dL Plasma Lactic Acid Harvinder 2.4 H* (0.7-2.0) mmol/L Creatine Kinase (30-135) U/L Urine Appearance (Clear) Urine Protein (Negative) Ur Squamous Epith Cells (0-4) /hpf Hyaline Casts (0-2) /lpf Urine Mucus (None) /hpf H & H 02/22/25 Range/Units 16:25 Hgb 12.2 (12.0-15.0) g/dL Hct 36.1 L (37.2-46.3) % Coagulation 02/23/25 Range/Units 04:53 INR 1.1 (<1.2) Result Diagrams: 02/22/25 16:25 02/22/25 16:25 Assessment and Plan (1) Fall Current Visit: Yes Status: Acute Code(s): W19.XXXA - UNSPECIFIED FALL, INITIAL ENCOUNTER SNOMED Code(s): 1198536 (2) Hip fracture, right Current Visit: Yes Status: Acute Code(s): S72.001A - FRACTURE OF UNSP PART OF NECK OF RIGHT FEMUR, INIT SNOMED Code(s): 762500407 Plan: 1. NPO. 2. Continue bedrest and pain control. 3. Appreciate input from internal medicine. 4. Planning for intramedullary nailing of the right hip later today pending consent and medical clearance.
[2025-02-23 12:36] LABS: NT-Pro-B-Type Natriuretic Pept 2250 pg/mL
--- NOTE | 2025-02-24 04:03 | HP ---
HISTORY AND PHYSICAL CHIEF COMPLAINT: Fracture of the right hip, general debility, malnutrition, and delirium. HISTORY OF PRESENT ILLNESS: This is a 1st known admission for this 79-year-old female. Nobody knows where she came from. She apparently was found on the floor and brought in with a broken hip. She has multiple excoriations and abrasions about the body. She is extremely pale, dehydrated, and cachectic. REVIEW OF SYSTEMS: Cannot be obtained. Past medical history, family history, personal and social histories cannot be reliably obtained. PHYSICAL EXAMINATION: VITAL SIGNS: Normal. GENERAL: She is pale. HEAD, EARS, EYES, NOSE, MOUTH AND THROAT: Seem normal. There are no neck masses. CHEST: Clear. CARDIAC: Sinus. ABDOMEN: Soft and nontender. Right hip is fractured. EXTREMITIES: Demonstrated stasis dermatitis below the knees. DIAGNOSES: She is admitted to the hospital with diagnoses of, 1. Fracture of the right hip. 2. Malnutrition. 3. Dehydration. 4. Multiple superficial abrasions and possible insect bites. 5. Stasis dermatitis of the lower extremities. 6. Hypokalemia at 3.2. 7. Hypotension at 95/65. PLAN: 1. Bedrest. 2. IV fluids. 3. Appropriate labs. 4. Orthopedic consult. 5. PT and OT. 6. Look into possible APS issue. 7. Discharge planning. MMODL / IJN: [id number] /
--- NOTE | 2025-02-24 04:17 | PN ---
PROGRESS NOTE CHIEF COMPLAINT: Fracture of the right hip, malnutrition, and dehydration. HISTORY OF PRESENT ILLNESS: This lady is going to require extensive workup before she will be able to be cleared for surgery. We were unable to obtain any other information about her. PHYSICAL EXAMINATION: VITAL SIGNS: Blood pressure is low. GENERAL: She is pale. She is somewhat delirious. CHEST: Clear. CARDIAC: Sounds normal. ABDOMEN: Soft and nontender. EXTREMITIES: Unchanged. IMPRESSION: 1. Fracture of the right hip. 2. Malnutrition. 3. General debility. 4. Dehydration. PLAN: I will order appropriate studies to continue her assessment before surgery. MMODL / IJN: [id number] /
--- NOTE | 2025-02-24 08:02 | P.PN ---
Progress Note - Text Progress Note Date: 02/24/25 Patient was seen and evaluated this morning. Her questions were answered. Awaiting clearance by internal medicine for surgery.
--- NOTE | 2025-02-24 10:54 | CA ---
Transthoracic Echo Report Name: Fanny Goyal Age: 79 Gender: F : 1945 Exam Date: 02/23/2025 14:08 Exam Location: [facility] Ht (in): 62 Wt (lb): 145 Ordering Physician: Delfino Rousseau MD Attending/Referring Phys: Onelia VILLAREAL Medical Biller Coder Adan Jackson RDCS Procedure CPT: Indications: AF Cardiac Hx: Pacemaker Technical Quality: Poor Contrast 1: Definity Total Dose (mL): 2 Contrast 2: Total Dose (mL): MEASUREMENTS (Male / Female) Normal Values 2D ECHO LV Diastolic Diameter PLAX 4.1 cm 4.2 - 5.9 / 3.9 - 5.3 cm LV Systolic Diameter PLAX 3.2 cm IVS Diastolic Thickness 0.6 cm 0.6 - 1.0 / 0.6 - 0.9 cm LVPW Diastolic Thickness 0.7 cm 0.6 - 1.0 / 0.6 - 0.9 cm LV Relative Wall Thickness 0.3 RV Internal Dim ED PLAX 3.9 cm LVOT Diameter 2.0 cm Aortic Root Diameter 2.8 cm LA Systolic Diameter LX 4.6 cm 3.0 - 4.0 / 2.7 - 3.8 cm LA Volume 112.5 cm??? 18 - 58 / 22 - 52 cm??? LA Volume Index 65.7 cm???/m??? 16 - 28 cm???/m??? DOPPLER TR Peak Velocity 297.9 cm/s TR Peak Gradient 35.5 mmHg Right Atrial Pressure 15.0 mmHg Pulmonary Artery Systolic Pressu 50.5 mmHg Right Ventricular Systolic Press 50.5 mmHg FINDINGS Left Ventricle Left ventricular ejection fraction is estimated at 60 %. Normal left ventricular systolic function with no obvious regional wall motion abnormalities. Left ventricular wall thickness normal. Right Ventricle Moderate right ventricular dilatation. Moderate pulmonary hypertension. Right ventricular systolic pressure estimated at 51 mm hg. Right Atrium Severe right atrial dilatation. Left Atrium Moderately increased left atrial diameter. Severely increased left atrial volume. Mildly increased left atrial area. Mitral Valve Structurally normal mitral valve. No mitral stenosis. No mitral regurgitation. Aortic Valve Trileaflet aortic valve. Aortic valve sclerosis. No aortic stenosis. Trace aortic regurgitation. Tricuspid Valve Structurally normal tricuspid valve. No tricuspid stenosis. Moderate tricuspid regurgitation. Pulmonic Valve Structurally normal pulmonic valve. No pulmonic stenosis. Mild pulmonic regurgitation. Pericardium No pericardial or pleural effusion. Aorta Normal size aortic root and proximal ascending aorta. CONCLUSIONS Normal LV systolic function Severe biatrial enlargement Moderate to severe pulmonary hypertension Dilated RV Moderate tricuspid regurgitation Mild mitral regurgitation Previewed by: Dr. Ran Harvey MD (Electronically Signed) Final Date: 24 February 2025 10:53
--- NOTE | 2025-02-24 11:53 | XR ---
EXAMINATION TYPE: XR chest 1V portable DATE OF EXAM: 02/24/2025 11:33 AM COMPARISON: None. CLINICAL INDICATION: Female, 79 years old with history of CHF, TECHNIQUE: XR chest 1V portable view(s) obtained. FINDINGS: The heart size is normal. The pulmonary vasculature is normal. The lungs are clear. Pacemaker overlies left chest. IMPRESSION: 1. No acute pulmonary process. [facility], , 02/24/2025 11:50 AM
[2025-02-24 12:04] LABS: Basophils # (A) 0.04 10*3/uL (0.00-0.10); Basophils % (A) 0.5 %; Eosinophils # (A) 0.07 10*3/uL (0.04-0.35); Eosinophils % (A) 0.9 %; HCT 30.4 % (37.2-46.3); HGB 10.1 g/dL (12.0-15.0); Lymphocytes # (A) 0.88 10*3/uL (0.90-5.00); Lymphocytes % (A) 11.2 %; MCH 34.8 pg (27.0-32.0); MCHC 33.2 g/dL (32.0-37.0); MCV 104.8 fL (80.0-97.0); Mean Platelet Volume 10.9 fL (9.5-12.2); Monocytes # (A) 0.94 10*3/uL (0.20-1.00); Monocytes % (A) 11.9 %; Neutrophils # (A) 5.93 10*3/uL (1.80-7.70); Neutrophils % (A) 75.1 %; Platelet Count 152 10*3/uL (140-440); RDW 14.6 % (11.5-14.5); WBC 7.89 10*3/uL (4.50-10.00)
[2025-02-24 12:17] LABS: ALT 18 U/L (4-34); AST 33 U/L (14-36); African American GFR (CKD) >90 (>60 ml/min/1.73 sqM); Albumin 2.6 g/dL (3.5-5.0); Albumin/Globulin Ratio 1.1; Alkaline Phosphatase 65 U/L (38-126); Anion Gap 3 mmol/L; Blood Urea Nitrogen 24 mg/dL (7-17); Calcium 8.8 mg/dL (8.4-10.2); Carbon Dioxide 28 mmol/L (22-30); Chloride 106 mmol/L (98-107); Globulin 2.4 g/dL; Glucose 95 mg/dL (74-99); Non-African American GFR(CKD) 85 (>60 ml/min/1.73 sqM); Sodium 137 mmol/L (137-145); Total Bilirubin 0.9 mg/dL (0.2-1.3)
--- NOTE | 2025-02-24 13:19 | P.CRDCN ---
History of Present Illness History of present illness: HISTORY OF PRESENT ILLNESS: This is a 79-year-old female with a past medical history significant for sick sinus syndrome status post pacemaker implantation and atrial fibrillation. Patient follows in the office with Dr. De León. We have been asked to see the patient in consultation for cardiac clearance. Patient examined at the bedside. Patient presented to the hospital after being found down at home by her family. Patient was found to have a hip fracture and is scheduled to undergo surgical intervention. Patient is currently confused at the time of examination. There is no family present. Patient denies any chest pain or pressure. She denies any shortness of breath. DIAGNOSTICS: - EKG reveals fibrillation with controlled ventricular rate - Chest xray negative for acute process - Laboratory data: WBC 7.89. Hemoglobin 10.1. Platelet count 152. Sodium 137. Potassium 4.0. BUN 24. Creatinine 0.61. TSH 1.570. proBNP 2250 - Current home cardiac medications include Eliquis 2.5 mg twice a day, metoprolol tartrate 12.5 mg twice a day, and Lasix 20 mg daily as needed -2D echo obtained revealing ejection fraction 60%, no obvious regional wall motion maladies, moderate pulmonary hypertension, moderate tricuspid regurgitation - Patient underwent Lexiscan stress test in August 2024 which was negative for ischemia REVIEW OF SYSTEMS: At the time of my exam: CONSTITUTIONAL: Denies fever or chills. HEENT: Denies blurred vision, vision changes, or eye pain. Denies hemoptysis CARDIOVASCULAR: Denies chest pain. Denies orthopnea. Denies PND. Denies palpitations RESPIRATORY: Denies shortness of breath. GASTROINTESTINAL: Denies abdominal pain. Denies nausea or vomiting. HEMATOLOGIC: Denies bleeding disorders. GENITOURINARY: Denies any blood in urine. SKIN: Denies pruitis. Denies rash. PHYSICAL EXAM: VITAL SIGNS: Reviewed. GENERAL: Well-developed in no acute distress. HEENT: Head is normocephalic. Pupils are equal, round. Sclerae anicteric. Mucous membranes of the mouth are moist. Neck supple. No JVD or thyromegaly LUNGS: Respirations even and unlabored. Lungs essentially clear to auscultation bilaterally. HEART: Irregular rate and rhythm. S1 and S2 heard. ABDOMEN: Soft. Nondistended. Nontender. EXTREMITIES: No clubbing or cyanosis. Peripheral pulses intact. No lower extremity edema NEUROLOGIC: Awake and alert. ASSESSMENT: Right hip fracture Sick sinus syndrome with previous pacemaker implantation, Pink Persistent atrial fibrillation History of memory impairment Moderate pulmonary hypertension PLAN: 2D echo obtained and reviewed Kita remains on hold for surgical intervention Resume metoprolol There are no absolute contraindications for patient to proceed with surgery from a cardiac standpoint Further recommendations pending patient course Nurse practitioner note has been reviewed by physician. Signing provider agrees with the documented findings, assessment, and plan of care documented by WASH HOUSE WORKER as a scribe. 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 very agitated during phone call-has some other meds not stated & doesn't know what they are for, poor historian History of Any Multi-Drug Resistant Organisms: None Reported Past Surgical History: Cholecystectomy, Hysterectomy, Pacemaker, Tubal Ligation Past Anesthesia/Blood Transfusion Reactions: No Reported Reaction Type of Cardiac Device: Permanent Pacemaker Device Placement Date:: 1995 & 2045 Past Psychological History: No Psychological Hx Reported Smoking Status: Current some day smoker - Past Family History Brother(s) Family Medical History: Cancer Father Family Medical History: Coronary Artery Disease (CAD) Medications and Allergies Home Medications Medication Instructions Recorded Confirmed Type Apixaban [Eliquis] 2.5 mg PO BID 10/25/24 02/22/25 History Metoprolol Tartrate [Lopressor] 12.5 tab PO BID 12/08/24 02/22/25 History Furosemide [Lasix] 20 mg PO DAILY PRN 02/22/25 02/22/25 History Allergies Allergy/AdvReac Type Severity Reaction Status Date / Time Iodinated Contrast Media Allergy Rash/Hives Verified 02/22/25 17:37 [Iodinated Contrast Media - IV Dye] Latex, Natural Rubber Allergy Rash/Hives Verified 02/22/25 17:37 Penicillins Allergy Swelling Verified 02/22/25 17:37 shellfish derived Allergy Rash/Hives Verified 02/22/25 17:37 Physical Exam Vitals: Vital Signs Temp Pulse Resp BP Pulse Ox 04/10/25 07:00 97.6 F 63 18 150/63 99 02/24/25 01:19 98.6 F 56 L 16 123/56 99 02/23/25 19:24 98.2 F 100 18 125/63 94 L Intake and Output 02/23/25 02/24/25 02/24/25 22:59 06:59 14:59 Output Total 600 200 Balance -600 -200 Output: Urine 600 200 Other: Voiding Method Indwelling Catheter Indwelling Catheter Results 02/24/25 11:49 02/24/25 11:49 Cardiac Enzymes 02/24/25 Range/Units 11:49 AST 33 (14-36) U/L CBC 02/24/25 Range/Units 11:49 WBC 7.89 (4.50-10.00) 10*3/uL RBC 2.90 L (4.10-5.20) 10*6/uL Hgb 10.1 L (12.0-15.0) g/dL Hct 30.4 L (37.2-46.3) % Plt Count 152 (140-440) 10*3/uL Comprehensive Metabolic Panel 02/24/25 Range/Units 11:49 Sodium 137 (137-145) mmol/L Potassium 4.0 (3.5-5.1) mmol/L Chloride 106 (98-107) mmol/L Carbon Dioxide 28 (22-30) mmol/L BUN 24 H (7-17) mg/dL Creatinine 0.61 (0.52-1.04) mg/dL Glucose 95 (74-99) mg/dL Calcium 8.8 (8.4-10.2) mg/dL AST 33 (14-36) U/L ALT 18 (4-34) U/L Alkaline Phosphatase 65 (38-126) U/L Total Protein 5.0 L (6.3-8.2) g/dL Albumin 2.6 L (3.5-5.0) g/dL Current Medications Generic Name Dose Route Start Last Admin Trade Name Freq PRN Reason Stop Dose Admin Hydromorphone HCl 1 mg 02/23/25 02:31 02/24/25 11:39 Hydromorphone 2 Mg/Ml 1 Ml Syringe IVP 1 mg Q6HR PRN Administration Pain Metoprolol Tartrate mg 02/24/25 13:15 Metoprolol Tartrate 25 Mg Tab PO BID RAY Intake and Output 02/23/25 02/24/25 02/24/25 22:59 06:59 14:59 Output Total 600 200 Balance -600 -200 Output: Urine 600 200 Other: Voiding Method Indwelling Catheter Indwelling Catheter 02/24/25 11:49 02/24/25 11:49
[2025-02-24] MEDS: LACTATED RINGERS 1,000 ML IV ONE (16:20)
[2025-02-24] MEDS ORDERED: fentaNYL (PF) 50 MCG/ML 2 ML AMP ONE (16:55)
[2025-02-24] MEDS ORDERED: NEOSTIGMINE 1 MG/ML 10 ML VIAL ONE (16:55)
[2025-02-24] MEDS ORDERED: LIDOCAINE 1% INJ 10MG/ML (20 ML MDV) ONE (16:55)
[2025-02-24] MEDS ORDERED: ROCURONIUM 10 MG/ML (5 ML VIAL) IV ONE (16:55)
[2025-02-24] MEDS ORDERED: GLYCOPYRROLATE 0.2 MG/ML 2 ML VIAL ONE (16:55)
[2025-02-24] MEDS ORDERED: PROPOFOL 10 MG/ML 20 ML VIAL IV ONE (16:55)
[2025-02-24] MEDS: SODIUM CHLORIDE 0.9% 100 ML with ceFAZolin 2,000 MG IV ONE (16:59)
[2025-02-24] MEDS: METOPROLOL TARTRATE 12.5 MG TAB PO SCH (17:29)
[2025-02-24] MEDS ORDERED: ONDANSETRON 4 MG/2 ML VIAL IVP PRN (18:12)
[2025-02-24] MEDS ORDERED: MAGNESIUM HYDROXIDE 2,400 MG/30 ML CUP PO PRN (18:12)
[2025-02-24] MEDS ORDERED: HYDROcodone/APAP 10-325MG 1 EACH TAB PO PRN (18:12)
[2025-02-24] MEDS ORDERED: diazePAM 5 MG TAB PO PRN ×2 (18:12)
[2025-02-24] MEDS ORDERED: NALOXONE 0.4 MG/ML 1 ML VIAL IV PRN (18:12)
[2025-02-24] MEDS ORDERED: HYDROmorphone 0.5 MG/0.5 ML SYRINGE IVP PRN ×2 (18:12)
--- NOTE | 2025-02-24 18:12 | P.OP ---
Date of Procedure: 02/24/25 Preoperative Diagnosis: 1. Right intertrochanteric hip fracture 2. Memory impairment Postoperative Diagnosis: Same Procedure(s) Performed: Operative fixation of right intertrochanteric hip fracture with intermediate length intramedullary hip screw Anesthesia: MAGGIE Surgeon: Darci Oseguera Estimated Blood Loss (ml): 200 IV fluids (ml): 800 Pathology: none sent Condition: stable Disposition: PACU Indications for Procedure: I met with the patient and their family preoperatively to discuss their injury and treatment options. They have an extra-capsular, intertrochanteric hip fracture and my recommendation was to stabilize the fracture with an i ntramedullary hip screw to facilitate early mobilization. We discussed the potential risks and complications of this surgical procedure including but certainly not limited to risks from anesthesia, superficial infection, deep infection, fracture nonunion, fracture malunion, hardware failure including broken hardware, varus collapse with lag screw cut out of the femoral head, progression of hip arthritis, limb length discrepancy, symptomatic hardware, need for further surgery including hardware removal and conversion to arthroplasty, DVT, PE, acute coronary event, pressure ulcers, urinary tract infection, failure to thrive, an inability to regain preinjury level of function, and possibly . The patient and their family understand these potential complications and also awknowledge that other less common complications are possible. They provided both their verbal and written consent to go forward with operative fixation of their hip fracture with an intramedullary hip screw. Operative Findings: The patient was found to have bedbugs and/or some type of diffuse small wounds throughout her body including over her hip wound indicating poor personal hygiene Description of Procedure: The patient was identified in preoperative holding and the correct operative extremity was marked with my initials. I reviewed the consent form with the patient and their family and all of their questions were answered. The patient was then brought back to the operating room by anesthesia. Anesthesia, preoperative antibiotics, and tranexamic acid were given by the anesthesia team while on the [facility]. Both ankles were padded with webril and boots for the Logan table were applied. The patient was then carefully transferred onto the Logan ta ble. A perineal post was immediately placed. The contralateral arm was secured on a well-padded arm tavarez. The ipsilateral arm was draped across the chest and secured with a pillow, foam, and paper tape to allow access to the proximal femur. Nonsterile drapes were applied to the operative extremity. The height of the table was elevated and the contralateral extremity was dropped towards the floor to facilitate imaging. A timeout was performed identifying the correct patient, operative extremity, and procedure. Fluoroscopy was brought in to assess the fracture. A provisional reduction was performed using longitudinal traction, adduction, and internal rotation. An AP and lateral view were obtained to assess the reduction. The operative extremity was then prepped and draped in the standard sterile fashion. A straight incision was made at the tip of the greater trochanter and extended proximally for 3 cm. Skin and subcutaneous tissues were incised sharply. The underlying fascia was incised in line with the skin incision. An awl was placed just medial to the tip of the greater trochanter on the AP view and colinear with the canal on the lateral view. A 3.2 mm guide pin was then advanced into the proximal femur. The position of the guidepin was verified with fluoroscopy. An opening reamer and soft tissue cannula were placed over the guidepin and used to open the proximal femur to the level of the lesser trochanter. The 3.2 mm guide pin and opening reamer were removed. An intermediate gamma nail was dispensed, hooked up to the targeting arm and I verified that the trochar through the targeting arm lined up with the slots on the nail. The nail was then impacted into the proximal femur until the appropriate depth had been reached. A small stab incision was made over the lateral aspect of the femur using the targeting arm as a reference for the lag screw. Incision was carried down to the skin and fascia down to the lateral cortex of the femur. The trocar was then placed up to the lateral cortex of the femur and a guidepin was placed in the low center position on the AP view and centered in the femoral head on the lateral view. Once the position of the guidewire was verified, we reamed to appropriate depth and placed a lag screw over the guidewire and into the femoral head. The position of the lag screw was assessed with fluoroscopy. The guidewire was then removed from the femoral head. The set screw was placed proximally, brought fully down and then released a quarter turn to allow compression. A final stab incision was made over the lateral femur at the site of the distal interlocking screw, again using the targeting arm as a reference. The trocar and sleeve were placed to the lateral cortex of the femur. We then drilled and placed a distal interlocking screw. Final fluoroscopic images were taken showing excellent reduction of the fracture and appropriate position of the implants. All wounds were thoroughly irrigated and closed in layers. Sterile dressings were applied. The drapes were taken down, the patient was transferred off the Logan table, and was brought to recovery having tolerated the procedure well. PLAN: The patient can weight-bear as tolerated on their operative extremity. 2 doses of postoperative antibiotics. DVT prophylaxis can resume Eliquis. Dressing change on postoperative day #2. Appreciate Internal Medical assistance with perioperative medical management. Discharge planning in process.
--- NOTE | 2025-02-24 18:13 | FL ---
EXAMINATION TYPE: FL guidance operating room, XR Hip Complete RT DATE OF EXAM: 02/24/2025 6:04 PM COMPARISON: Pre Operative Images if available both CT/MRI or plain film CLINICAL INDICATION: Female, 79 years old with history of RT HIP NAILING; TECHNIQUE: FL guidance operating room, XR Hip Complete RT, multiple fluoroscopic images provided for procedure. DAP: 2.1; mGym2 Gycm2 uGym2 cGycm2 or equivalent. FINDINGS: Fluoroscopic images during internal fixation demonstrate hardware in appropriate position. Hardware a ppears intact. No immediate complication identified. IMPRESSION: 1. No evidence for intraoperative complication. 2. Please see the operative/procedural note for further details. [facility], , 02/24/2025 6:11 PM
[2025-02-24 20:04] LABS: HGB 10.6 g/dL (12.0-15.0); MCH 34.2 pg (27.0-32.0); MCHC 32.1 g/dL (32.0-37.0); MCV 106.5 fL (80.0-97.0); Mean Platelet Volume 11.7 fL (9.5-12.2); Platelet Count 120 10*3/uL (140-440); RDW 14.9 % (11.5-14.5); WBC 17.57 10*3/uL (4.50-10.00)
[2025-02-24 20:36] LABS: Lymphocytes # (M) 1.41 k/uL (1.0-4.8); Monocytes # (M) 1.23 k/uL (0-1.0); Neutrophils # (M) 14.93 k/uL (1.3-7.7); Neutrophils % (M) 85 %; Nucleated Red Blood Cells 0 /100 WBC (0-0); Polychromasia Present; Total Cells Counted 100
[2025-02-24] MEDS: SODIUM CHLORIDE 0.9% 1,000 ML IV ONE (21:29)
[2025-02-24] MEDS: SENNOSIDES-DOCUSATE SODIUM 1 EACH TAB PO SCH (21:34)
[2025-02-24] MEDS: APIXABAN 2.5 MG TABLET PO SCH (21:34)
[2025-02-24] MEDS: HYDROcodone/APAP 5-325MG 1 EACH TAB PO PRN (22:05)
[2025-02-24] MEDS: ceFAZolin 2 GM in DEXTROSE 5% IN WATER 50 ML IVPB SCH (23:43)
[2025-02-25] MEDS: HYDROmorphone 0.5 MG/0.5 ML SYRINGE IVP PRN (01:15)
[2025-02-25 08:53] VITALS: RESP 18
--- NOTE | 2025-02-25 12:08 | P.PN ---
Subjective HISTORY OF PRESENT ILLNESS: This is a 79-year-old female with a past medical history significant for sick sinus syndrome status post pacemaker implantation and atrial fibrillation. Patient follows in the office with Dr. De León. We have been asked to see the patient in consultation for cardiac clearance. Patient examined at the bedside. Patient presented to the hospital after being found down at home by her family. Patient was found to have a hip fracture and is scheduled to undergo surgical intervention. Patient is currently confused at the time of examination. There is no family present. Patient denies any chest pain or pressure. She denies any shortness of breath. DIAGNOSTICS: - EKG reveals fibrillation with controlled ventricular rate - Chest xray negative for acute process - Laboratory data: WBC 7.89. Hemoglobin 10.1. Platelet count 152. Sodium 137. Potassium 4.0. BUN 24. Creatinine 0.61. TSH 1.570. proBNP 2250 - Current home cardiac medications include Eliquis 2.5 mg twice a day, metoprolol tartrate 12.5 mg twice a day, and Lasix 20 mg daily as needed -2D echo obtained revealing ejection fraction 60%, no obvious regional wall motion maladies, moderate pulmonary hypertension, moderate tricuspid regurgitati on - Patient underwent Lexiscan stress test in August 2024 which was negative for ischemia 02/25/2025 Patient is status post surgical intervention for right hip fracture. Patient examined this morning at bedside. Patient currently denies chest pain or pressure. She denies shortness of breath. Vital signs are stable. PHYSICAL EXAM: VITAL SIGNS: Reviewed. GENERAL: Well-developed in no acute distress. HEENT: Head is normocephalic. Pupils are equal, round. Sclerae anicteric. Mucous membranes of the mouth are moist. Neck supple. No JVD or thyromegaly LUNGS: Respirations even and unlabored. Lungs essentially clear to auscultation bilaterally. HEART: Irregular rate and rhythm. S1 and S2 heard. ABDOMEN: Soft. Nondistended. Nontender. EXTREMITIES: No clubbing or cyanosis. Peripheral pulses intact. No lower extremity edema NEUROLOGIC: Awake and alert. ASSESSMENT: Right hip fracture Sick sinus syndrome with previous pacemaker implantation, Pink Persistent atrial fibrillation History of memory impairment Moderate pulmonary hypertension PLAN: 2D echo obtained and reviewed Eliquis has been resumed Patient is stable from a cardiac standpoint with no further inpatient recommen dations We will sign off. Please reconsult if needed. Nurse practitioner note has been reviewed by physician. Signing provider agrees with the documented findings, assessment, and plan of care documented by MANUFACTURING LEADER as a scribe. Objective - Vital Signs Vital signs: Vital Signs Temp 97.9 F 02/25/25 07:27 Pulse 74 02/25/25 07:27 Resp 18 02/25/25 07:27 BP 121/67 02/25/25 07:27 Pulse Ox 98 02/25/25 07:27 FiO2 Intake & Output 02/24/25 02/25/25 02/25/25 18:59 06:59 18:59 Intake Total 700 240 Output Total 500 350 150 Balance 200 -110 -150 Weight 65.771 kg Intake: IV 700 Oral 240 Output: Urine 300 350 150 Estimated Blood Loss 200 Other: Voiding Method Indwelling Catheter Indwelling Catheter Indwelling Catheter - Labs CBC & Chem 7: 02/24/25 19:08 02/24/25 11:49 Labs: Abnormal Lab Results - Last 24 Hours (Table) 02/24/25 02/24/25 Range/Units 11:49 19:08 WBC 17.57 H (4.50-10.00) 10*3/uL RBC 3.10 L (4.10-5.20) 10*6/uL Hgb 10.6 L (12.0-15.0) g/dL Hct 33.0 L (37.2-46.3) % MCV 106.5 H (80.0-97.0) fL MCH 34.2 H (27.0-32.0) pg RDW 14.9 H (11.5-14.5) % Plt Count 120 L (140-440) 10*3/uL Immature Gran # 0.10 H (0.00-0.04) 10*3/uL Neutrophils # (Manual) 14.93 H (1.3-7.7) k/uL Monocytes # (Manual) 1.23 H (0-1.0) k/uL BUN 24 H (7-17) mg/dL Total Protein 5.0 L (6.3-8.2) g/dL Albumin 2.6 L (3.5-5.0) g/dL
[2025-02-25 12:24] LABS: ALT 20 U/L (4-34); AST 34 U/L (14-36); African American GFR (CKD) >90 (>60 ml/min/1.73 sqM); Albumin 2.6 g/dL (3.5-5.0); Albumin/Globulin Ratio 1.1; Alkaline Phosphatase 69 U/L (38-126); Anion Gap 2 mmol/L; Blood Urea Nitrogen 21 mg/dL (7-17); Calcium 8.6 mg/dL (8.4-10.2); Carbon Dioxide 29 mmol/L (22-30); Chloride 103 mmol/L (98-107); Globulin 2.4 g/dL; Glucose 111 mg/dL (74-99); Non-African American GFR(CKD) 88 (>60 ml/min/1.73 sqM); Potassium 3.7 mmol/L (3.5-5.1); Sodium 134 mmol/L (137-145); Total Bilirubin 0.8 mg/dL (0.2-1.3)
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
[2025-02-25] MEDS: MULTIVITAMINS, THERA 1 EACH TAB PO SCH (14:01)
[2025-02-25] MEDS: CHOLECALCIFEROL 25 MCG (1000 IU) TABLET PO SCH (14:01)
[2025-02-25 15:19] LABS: HCT 29.6 % (37.2-46.3); HGB 9.1 g/dL (12.0-15.0); MCH 32.6 pg (27.0-32.0); MCHC 30.7 g/dL (32.0-37.0); MCV 106.1 FL (80.0-97.0); Mean Platelet Volume 11.7 FL (9.5-12.2); NRBC Per 100 WBC 0 X 10*3/uL (0.00-0.01); Platelet Count 153 X 10*3/uL (140-440); RBC 2.79 X 10*6/uL (4.10-5.20); RDW 14.5 % (11.5-14.5); WBC 10.06 X 10*3/uL (4.50-10.00)
[2025-02-25 16:08] LABS: Basophils # (A) 0.04 X 10*3/uL (0.00-0.10); Basophils % (A) 0.4 %; Eosinophils # (A) 0.05 X 10*3/uL (0.04-0.35); Eosinophils % (A) 0.5 %; Hypochromasia (M) 2+ (None Seen); Lymphocytes # (A) 0.57 X 10*3/uL (0.90-5.00); Lymphocytes % (A) 5.7 %; Macrocytosis (M) 2+ (None Seen); Monocytes # (A) 0.87 X 10*3/uL (0.20-1.00); Monocytes % (A) 8.6 %; Neutrophils # (A) 8.49 X 10*3/uL (1.80-7.70); Neutrophils % (A) 84.4 %
[2025-02-25] MEDS: ERGOCALCIFEROL 1,250 MCG (50,000 IU) CAPSULE PO SCH (21:14)
--- NOTE | 2025-02-26 03:54 | PN ---
PROGRESS NOTE CHIEF COMPLAINT: Fracture of the right hip. HISTORY OF PRESENT ILLNESS: This lady is about the same. She is very delirious and very confused. PHYSICAL EXAMINATION: VITAL SIGNS: Normal. GENERAL: She remains pale. CHEST: Clear. CARDIAC: Normal. ABDOMEN: Soft and nontender. IMPRESSION: 1. Fracture of the right hip, status post open reduction and internal fixation. 2. Congestive heart failure. 3. Malnutrition. 4. Delirium. PLAN: Continue to work with physical and occupational therapies and look for discharge plan. MMODL / IJN: [id number] /
--- NOTE | 2025-02-26 09:08 | P.PN ---
Subjective No acute events today. Patient seems to be doing relatively well. Objective - Vital Signs Vital signs: Vital Signs Temp 97.5 F L 02/26/25 02:00 Pulse 91 02/26/25 02:00 Resp 18 02/26/25 02:00 BP 152/81 02/26/25 02:00 Pulse Ox 99 02/26/25 02:00 FiO2 Intake & Output 02/25/25 02/26/25 02/26/25 18:59 06:59 18:59 Output Total 150 Balance -150 Output: Urine 150 Other: Voiding Method Indwelling Catheter # Voids 1 1 - Exam Patient is sitting up in a chair at bedside. She is alert and able to answer questions. A focused exam of the right lower extremity was conducted. The dressing on the superiormost incision is intact. The patient has removed the dressings over her middle and distal incisions. Candor are in place. There is no drainage or sign of infection from either incision. Her thigh is moderately swollen. She can actively extend her knee. She is able to actively plantarflex and dorsiflex her ankle and her toes. - Labs CBC & Chem 7: 02/25/25 11:53 02/25/25 11:53 Labs: Abnormal Lab Results - Last 24 Hours (Table) 02/25/25 02/25/25 02/25/25 Range/Units 10:26 11:53 11:53 WBC 10.06 H (4.50-10.00) X 10*3/uL RBC 2.79 L (4.10-5.20) X 10*6/uL Hgb 9.1 L (12.0-15.0) g/dL Hct 29.6 L (37.2-46.3) % MCV 106.1 H (80.0-97.0) FL MCH 32.6 H (27.0-32.0) pg MCHC 30.7 L (32.0-37.0) g/dL Neutrophils # 8.49 H (1.80-7.70) X 10*3/uL Lymphocytes # 0.57 L (0.90-5.00) X 10*3/uL Hypochromasia (manual) 2+ A (None Seen) Macrocytosis (manual) 2+ A (None Seen) Sodium 134 L (137-145) mmol/L BUN 21 H (7-17) mg/dL Glucose 111 H (74-99) mg/dL Total Protein 5.0 L (6.3-8.2) g/dL Albumin 2.6 L (3.5-5.0) g/dL Vitamin D 25-Hydroxy 8.4 L (30.0-100.0) ng/mL Assessment and Plan Assessment: Status post right hip gamma nail for intertrochanteric hip fracture Plan: Continue treatment as outlined yesterday. Weight-bear as tolerated with assistance and a walker on the right leg. Leave surgical dressings in place if possible. The patient had an extremely low level of vitamin D so she was started on vitamin D supplementation. Eliquis for DVT prophylaxis. The patient has been authorized for discharge to [facility] in [place]. She is okay to discharge from an orthopedic standpoint.
--- NOTE | 2025-02-26 09:40 | P.DS ---
Providers Date of admission: 02/22/25 20:01 Attending physician: Delfino Rousseau Consults: 02/22/25 19:59 Consult Physician Urgent Consulting Provider: Karsten Johnson Reason/Comments: Right hip fracture Do you want consulting provider notified?: Yes Primary care physician: Delfino Rousseau Hospital Course: The patient is a very pleasant 79-year-old female with a medical history signif icant for memory impairment. She came to the hospital on 02/22/2025 after a ground-level fall resulting in a right hip fracture. She was admitted under the care of internal medicine. Orthopedics was consulted for her right hip. She underwent clearance with internal medicine and cardiology. The patient was cleared for surgery by cardiology and she was taken to the operating room and a gamma nail was placed. Following surgery she was made weightbearing as tolerated with a walker on her right leg. She resumed Eliquis for DVT prophylaxis. She received 2 doses of postoperative antibiotics. She worked with physical therapy. She ultimately was cleared for discharge at [facility]. Patient Condition at Discharge: Good Plan - Discharge Summary New Discharge Prescriptions: New Docusate [Colace] 100 mg PO BID #30 capsule Ondansetron [Zofran] 4 mg PO Q8HR PRN #12 tab PRN Reason: Nausea Ergocalciferol [Vitamin D2 (1250 Mcg = 85982 Iu)] 1,250 mcg PO Q3D #30 capsule Cholecalciferol (Vitamin D3) [Vitamin D3 (50 Mcg = 2000 Iu)] 50 mcg PO DAILY #60 tab Apixaban [Eliquis] 2.5 mg PO BID #60 tab HYDROcodone/APAP 5-325MG [Hammond 5-325] 1 - 2 tab PO Q6HR PRN #12 tab PRN Reason: Pain No Action Apixaban [Eliquis] 2.5 mg PO BID Furosemide [Lasix] 20 mg PO DAILY PRN PRN Reason: Edema Metoprolol Tartrate [Lopressor] 12.5 tab PO BID Discharge Medication List Apixaban [Eliquis] 2.5 mg PO BID 10/25/24 [History] Metoprolol Tartrate [Lopressor] 12.5 tab PO BID 12/08/24 [History] Furosemide [Lasix] 20 mg PO DAILY PRN 02/22/25 [History] Apixaban [Eliquis] 2.5 mg PO BID #60 tab 02/26/25 [Rx] Cholecalciferol (Vitamin D3) [Vitamin D3 (50 Mcg = 2000 Iu)] 50 mcg PO DAILY #60 tab 02/26/25 [Rx] Docusate [Colace] 100 mg PO BID #30 capsule 02/26/25 [Rx] Ergocalciferol [Vitamin D2 (1250 Mcg = 08331 Iu)] 1,250 mcg PO Q3D #30 capsule 02/26/25 [Rx] HYDROcodone/APAP 5-325MG [Hammond 5-325] 1 - 2 tab PO Q6HR PRN #12 tab 02/26/25 [Rx] Ondansetron [Zofran] 4 mg PO Q8HR PRN #12 tab 02/26/25 [Rx] Follow up Appointment(s)/Referral(s): Idalmis Johnson DO [REFERRING] - 1-2 days Darci Oseguera MD [Medical Doctor] - 2 Weeks Activity/Diet/Wound Care/Special Instructions: ORTHOPAEDIC DISCHARGE INSTRUCTIONS: 1. Weight-bear as tolerated on your operative extremity unless instructed otherwise. Use a walker or other assistive device to ambulate. 2. Leave surgical dressing in place. If your dressing becomes saturated with blood, there is drainage, or the dressing becomes loose please contact the office. 3. It is okay to shower with your surgical dressing, but do not submerge in vikki er (no hot tubs, bath's, swimming etc.) 4. Make sure to take her blood clot prevention medication as prescribed (aspirin, Eliquis, Xarelto, and Plavix are commonly prescribed medications for blood clot prevention) 5. While taking Hammond or Percocet for pain make sure you're taking a stool softener (Colace) and drink lots of water. 6. Keep all follow-up appointments as scheduled. You will usually be seen in 1-2 weeks following surgery. 7. Please contact the office with any questions or concerns [phone] Discharge Disposition: TRANSFER TO SNF/ECF
[2025-02-26 10:14] VITALS: BP 104/59; PULSE 102; TEMP 97.4
--- NOTE | 2025-02-27 21:33 | DS ---
DISCHARGE SUMMARY CHIEF COMPLAINT: Fall, delirium, dehydration, malnutrition, and fracture of the right hip. HISTORY OF PRESENT ILLNESS AND PHYSICAL EXAMINATION: Details of this lady's history and physical can be found in the initial workup. LABORATORY STUDIES: While she was in the hospital, she had laboratory studies, details of which can be found in the laboratory section of her chart. COURSE IN THE HOSPITAL: After admission, she was placed on bedrest and started on intravenous fluids and eventually taken to the operating room for ORIF of the right hip. While she was in the hospital, she was determined to be dehydrated and severely malnourished in addition to having congestive heart failure. She had numerous excoriations without any known etiology. Postoperatively, she did well and arrangements were made for her to go to a correction on the . FINAL DIAGNOSES: 1. Fall. 2. Fracture of the right hip. 3. Dehydration. 4. Severe protein-calorie malnutrition. 5. General debility. 6. Delirium. 7. Dementia. 8. Anemia. OPERATIONS: ORIF of the right hip. CONSULTATIONS: Orthopedics and Cardiology. MMDESTINL / GION: [id number] /
== END 2025-02-26 11:33 | DRG 480 ==
LOC: SUPCPDRO 15:48 → EC 15:48 → 4SSUR 20:01
PROVIDERS: ADMIT Family Medicine; ATTEND Family Medicine
PROC: 0QS636Z Reposition Right Upper Femur with Intramedullary Internal Fixation Device, Percutaneous Approach (ICD-10-PCS; principal; 2025-02-24 09:00)
DX: S72.141A Displaced intertrochanteric fracture of right femur, initial encounter for closed fracture (principal); E43 Unspecified severe protein-calorie malnutrition; R64 Cachexia; F05 Delirium due to known physiological condition; I27.20 Pulmonary hypertension, unspecified; I49.5 Sick sinus syndrome; E86.0 Dehydration; D64.9 Anemia, unspecified; T14.8XXA Other injury of unspecified body region, initial encounter; F03.90 Unspecified dementia, unspecified severity, without behavioral disturbance, psychotic disturbance, mood disturbance, and anxiety; I50.9 Heart failure, unspecified; I07.1 Rheumatic tricuspid insufficiency; I48.19 Other persistent atrial fibrillation; T76.91XA Unspecified adult maltreatment, suspected, initial encounter; M48.00 Spinal stenosis, site unspecified; I87.2 Venous insufficiency (chronic) (peripheral); I95.9 Hypotension, unspecified; W18.30XA Fall on same level, unspecified, initial encounter; E55.9 Vitamin D deficiency, unspecified; E87.6 Hypokalemia; M19.90 Unspecified osteoarthritis, unspecified site; Z72.0 Tobacco use; Z68.26 Body mass index [BMI] 26.0-26.9, adult; Z79.01 Long term (current) use of anticoagulants; Z79.899 Other long term (current) drug therapy; Z91.040 Latex allergy status; Z95.0 Presence of cardiac pacemaker; Z91.041 Radiographic dye allergy status; Z88.0 Allergy status to penicillin
CPT/HCPCS: 36415; 51702; 70450; 71045; 72125; 73502; 80053; 81001; 82306; 82550; 83605; 83735; 83880; 84443; 85025; 85610; 85730; 86850; 86900; 86901; 93005; 93306; 96360; 96361; 99285